=== PATIENT | male | born 1935 | race African-American/Black ===

== ENCOUNTER 2017-06-11 15:34 | Observation (INO) | payer MEDICARE ==
[2017-06-11 16:12] LABS: #Eosinphils 0.1 thou/uL (0.0-0.7); #Monocytes 0.7 thou/uL (0.11-0.59); #Neutrophils 4.4 thou/uL (1.40-6.50); %Basophils 0.3 % (0.0-1.0); %Eosinophils 1.8 % (0.0-10.0); %Lymphocytes 16.1 % (21.0-51.0); %Monocytes 11.8 % (0.0-10.0); Hemoglobin 10.7 g/dL (14.0-18.0); Mean Corpuscular HGB CONC 32.9 g/dL (32.0-36.0); Mean Corpuscular Hemoglobin 30.6 pg (27.0-31.0); Mean Platelet Volume 8.5 fL (7.4-10.4); Platelet Count 252 thou/uL (130-400); RBC Distribution Width 13.6 % (11.5-14.5); Red Blood Cell (RBC) Count 3.51 mill/uL (4.70-6.10); White Blood Cell (WBC) Count 6.3 thou/uL (4.8-10.8)
--- NOTE | 2017-06-11 16:32 | RAD ---
PORTABLE CHEST ONE VIEW: Date: 06-11-17 Time: 4:22 p.m. History: Cough, fever, chills. FINDINGS: Comparison is made with exam of 05-05-17. Heart size is normal. No confluent areas of consolidation, pneumothoraces or pleural effusions are se en. IMPRESSION: No radiographic evidence of acute cardiopulmonary process. POS: [facility]
[2017-06-11 16:37] LABS: ALT (SGPT) 11 U/L (8-55); AST (SGOT) 20 U/L (5-34); Albumin 3.6 g/dL (3.4-4.8); Alkaline Phosphatase 62 U/L (40-150); Anion Gap 11 mmol/L (10-20); BUN (Urea Nitrogen) 21 mg/dL (8.4-25.7); Bilirubin, Total 0.8 mg/dL (0.2-1.2); Calc. Creatinine Clearance 0 mL/min (70-130); Calcium 8.9 mg/dL (7.8-10.44); Carbon Dioxide 23 mmol/L (23-31); Chloride 103 mmol/L (98-107); Estimated GFR-MDRD 56; Globulin 4.1 g/dL (2.4-3.5); Glucose 103 mg/dL (83-110); Potassium 4.1 mmol/L (3.5-5.1); Protein, Total 7.7 g/dL (5.8-8.1); Sodium 133 mmol/L (136-145)
[2017-06-11 17:44] LABS: CKMB 1.4 ng/mL (0-6.6); Troponin I 0.012 ng/mL (< 0.028)
--- NOTE | 2017-06-11 18:37 | CT ---
NONCONTRAST CT HEAD: Date: 06-11-17 History: Altered mental status. Flu-like symptoms. Comparison: 01-06-17 FINDINGS: Again noted is confluent decreased attenuation of the periventricular white matter likely reflective severe chronic small vessel ischemic change. Low density areas again seen within the left basal gangl ia suggesting remote lacunar infarction. There is no evidence of an acute cortical infarction, hemorr pola, mass effect, or midline shift. Diffuse cerebral and cerebellar volume loss is present. The vent ricles are normal in size, shape, and position for the degree of sulcal atrophy. Mucosal thickening i s seen in the ethmoidal air cells bilaterally. Mastoid air cells are clear. There has been no other i nterval change. IMPRESSION: 1. No acute intracranial abnormalities demonstrated. There has been no interval change from the prior exam. 2. Chronic small vessel ischemic changes and cerebral volume loss not significantly changed from prev ious comparison study. 3. Mild sinus disease. POS: [facility]
[2017-06-11 19:10] LABS: Bilirubin Negative (Negative); Blood, Urine Negative (Negative); Clarity CLEAR (Clear); Glucose, Urine (Dipstick) Negative (Negative); Leukocyte Negative (Negative); Nitrite Negative (Negative); Protein, Urine (Dipstick) Negative (Neg-Trace); Specific Gravity, Urine 1.008 (1.002-1.036); Urobilinogen 0.2 mg/dL (0.2-1.0)
[2017-06-11 20:29] LABS: Troponin I 0.013 ng/mL (< 0.028)
[2017-06-11] MEDS ORDERED: Ondansetron ODT 4 MG TAB SL PRN (21:10)
[2017-06-11] MEDS ORDERED: Ondansetron HCl/PF 4 MG/2 ML Vial IVP PRN (21:10)
[2017-06-11] MEDS ORDERED: Acetaminophen 325 MG TAB PO PRN (21:10)
[2017-06-11 22:59] VITALS: BMI 22.8
[2017-06-11 23:09] LABS: Troponin I 0.027 ng/mL (< 0.028)
[2017-06-11] MEDS ORDERED: HYDROcodone/Acetaminophen 5/325 mg Tablet PO PRN (23:59)
[2017-06-11] MEDS ORDERED: Guaifenesin DM 100-10/5 ML UDCUP PO PRN (23:59)
[2017-06-12] MEDS ORDERED: Albuterol Sulfate 2.5 mg/3 ml Neb NEB PRN (00:02)
[2017-06-12] MEDS: Sodium Chloride 0.9% 1,000 ML IV SCH ×2 (00:36→12:21)
--- NOTE | 2017-06-12 04:00 | HP ---
DATE OF ADMISSION: 06/11/2017 CHIEF COMPLAINT: Shortness of breath. HISTORY OF PRESENT ILLNESS: This is an 81-year-old -A[place]ij[place] male with a past medical history of hypertension, has been in his usual state of health until few days ago, he started noticing persi stent cough and congestion with low grade fever, so he decided to come to the ER for further evaluati on as it did not get a flu shot this season. The patient presented to the ER, he was non-hypoxic, bu t he was pretty weak and tired and lethargic, so he received a flu shot as his influenza A and B was negative, but because of the lethargy and weakness, he was admitted for further evaluation. Patient was seen on the floor. He was alert and oriented. He started feeling much better following some hyd ration and nebulizer treatments in the ER. The patient looked pretty dehydrated at this time. He de nies having any chest pain, no nausea, no vomiting, no diarrhea, no constipation. He lives on his [facility] and has no other family member living close by. PAST MEDICAL HISTORY: Hypertension, history of T3, history of colon cancer. PAST SURGICAL HISTORY: 1. He had a prostate cancer treated with chemo and radiation. 2. Appendectomy. 3. Prostatectomy. 4. Left colon resection with reversal of colostomy and laparoscopy, ventral hernia repair. SOCIAL HISTORY: The patient drinks occasionally. No history of alcohol. No history of smoking. No history of illicit drug use. FAMILY HISTORY: Significant family history of coronary artery disease. No other cancers in the [facility]. HOME MEDICATIONS: The patient is on amlodipine 5 mg p.o. daily and takes potassium 20 mEq p.o. daily . ALLERGIES: PENICILLIN allergy. REVIEW OF SYSTEMS: All 12 systems are reviewed with the patient thoroughly and found to be negative at this time except those described in HPI. The following complete review of systems was negative, u nless otherwise mentioned in the HPI or below: Constitutional: Weight loss or gain, sense of well-being, ability to conduct usual activities, exerc ise tolerance. Skin/Breast: Rash, itching, changes in hair growth or loss, nail changes, breast lum ps, tenderness, swelling, nipple discharge. Eyes: Vision, double vision, tearing, blind spots, pain . ENT/Mouth: Headaches (location, time of onset, duration, precipitating factors), vertigo, lightheadedness, injury. Vision, double vision, tearing, blind spots, pain, nose b leeding, colds, obstruction, discharge, dental difficulties, gingival bleeding, dentures, neck stiffn ess, pain, tenderness, masses in thyroid or other areas. Cardiovascular: Precordial pain, substerna l distress, palpitations, syncope, dyspnea on exertion, orthopnea, nocturnal paroxysmal dyspnea, al a, cyanosis, hypertension, heart murmurs, varicosities, phlebitis, claudication. Respiratory: Pain, shortness of breath, wheezing, stridor, cough, hemoptysis, fever or night sweats. Gastrointestinal: Poor appetite, dysphagia, indigestion, abdominal pain, heartburn, eructation, nausea, vomiting, hem atemesis, jaundice, constipation, or diarrhea, abnormal stools (michael-colored, tarry, bloody, greasy, foul smelling), flatulence, hemorrhoids, recent changes in bowel habits. Genitourinary: Urgency, fr equency, dysuria, nocturia, hematuria, polyuria, oliguria, unusual (or change in) color of urine, sto hina, hesitancy, change in size of stream, dribbling, acute retention or incontinence, libido, potency . Musculoskeletal: Pain, swelling, redness or heat of muscles or joints, limitation, of motion, mus cular weakness, atrophy, cramps. Neurologic/Psychiatric: Convulsions, paralyses, tremor, incoordina tion, parasthesias, difficulties with memory of speech, sensory or motor disturbances, or muscular co ordination (ataxia, tremor), emotional problems, anxiety, depression, previous psychiatric care, unus ual perceptions, hallucinations. Allergy/Immunologic: Skin rash, anemia, bleeding tendency, polydip yunior, polyuria, intolerance to heat or cold. PHYSICAL EXAMINATION: VITAL SIGNS: Blood pressures are 152/85, heart rate is 74, respiratory rate is 18, saturation is 98% on room air. GENERAL: The patient is a moderately built and moderately nourished. He does not appear to be in ac [place] distress at this time. He is alert, oriented x3. HEENT: Atraumatic, normocephalic, PERRLA. Extraocular muscles were intact. Oral mucosa is pink and moist. CARDIOVASCULAR: S1, S2 normal. No murmurs, rubs or gallops. LUNGS: Bilateral air entry was equal. No wheezing, no crackles. ABDOMEN: Soft and nontender. No guarding or rebound tenderness. Bowel sounds normal. MUSCULOSKELETAL: No calf tenderness. No pedal edema. EXTREMITIES: No joint tenderness. No joint swelling. SKIN: No cyanosis or erythema, no rash, no pallor. NEUROLOGIC: Cranial examination II-XII intact. No focal deficits were noted. LABORATORY DATA: WBC 6.3, hemoglobin 10.7, hematocrit 32.6. His sodium is 133, potassium 4.1, chloride is 103, bicarbonate is 23, BUN is 21, creatinine 1.45. Tr oponins remain normal. ASSESSMENT: 1. Acute flu-like syndrome. 2. Moderate dehydration. 3. Acute kidney injury. 4. Acute hyponatremia. 5. Anemia of chronic disease. 6. Hypertension, well controlled. PLAN: 1. The plan is to continue to monitor this patient. Start the patient on IV hydration with normal s kassandra at 100 mL hour. We will closely monitor. We will start the patient on antihistamines and Flon ase twice a day. The patient has received flu shot during this admission and we will continue to mon itor. If the patient starts feeling better, we will do a PT and OT evaluation in the morning. If he is safely discharge home, we will plan to discharge home or if he needs any rehab placement, we will do a rehab screen in the morning. 2. Patient has mild hyponatremia and it would be corrected with sodium with normal saline. 3. The patient has mild anemia with hemoglobin of 10.7. We will start the patient on iron medicatio ns with ferrous sulfate 325 mg p.o. b.i.d. and we will look for any evidence of GI bleed. We will do a stool occult. 4. Patient has hypertension. We will continue the patient's home medications at this time and we wi ll closely monitor his blood pressures while in the hospital. 5. DVT prophylaxis. SCDs. Dictating physician, Mansoor Basilio, has spent 70 minutes with this patient.
[2017-06-12 06:07] LABS: Anion Gap 9 mmol/L (10-20); BUN (Urea Nitrogen) 18 mg/dL (8.4-25.7); Calc. Creatinine Clearance 46 mL/min (70-130); Calcium 8.8 mg/dL (7.8-10.44); Carbon Dioxide 24 mmol/L (23-31); Chloride 108 mmol/L (98-107); Estimated GFR-MDRD 73; Glucose 87 mg/dL (83-110); Potassium 3.9 mmol/L (3.5-5.1); Sodium 137 mmol/L (136-145)
[2017-06-12 06:35] LABS: Band 3 % (5-11); Hemoglobin 10.1 g/dL (14.0-18.0); Lymphocytes 12 % (21-51); MDiff Complete? YES; Mean Corpuscular HGB CONC 32.1 g/dL (32.0-36.0); Mean Corpuscular Volume 93.6 fl (80.0-94.0); Mean Platelet Volume 8.6 fL (7.4-10.4); Monocytes 6 % (0-10); Neutrophil 79 % (42-75); PLT Morphology Comment Appears Adequate; Platelet Count 226 thou/uL (130-400); RBC Distribution Width 13.6 % (11.5-14.5); RBC Morphology Normal; Red Blood Cell (RBC) Count 3.36 mill/uL (4.70-6.10); White Blood Cell (WBC) Count 4.1 thou/uL (4.8-10.8)
[2017-06-12] MEDS ORDERED: Ferrous Sulfate 325 MG TAB PO SCH (08:00)
[2017-06-12] MEDS ORDERED: Fluticasone Propionate Nasal Spray 16 gm Bottle NASAL SCH (09:00)
[2017-06-12] MEDS ORDERED: Famotidine/PF 20 mg/2ml Vial SLOW IVP SCH (09:00)
[2017-06-12] MEDS ORDERED: Enoxaparin Sodium 40 MG/0.4 ML SYRINGE SC SCH (09:00)
[2017-06-12] MEDS ORDERED: Docusate 100 MG CAP PO SCH (09:00)
[2017-06-12] MEDS ORDERED: Loratadine 10 MG TAB PO SCH (09:00)
[2017-06-12] MEDS ORDERED: Prevnar 13-Val Conj/PF 0.5 ML SYRINGE IM ONE (09:00)
[2017-06-12] MEDS ORDERED: FLU VACC TS2017-18 (>65YR) 0.5 ML SYRINGE IM ONE (09:00)
[2017-06-12] MEDS ORDERED: Amlodipine 5 MG TAB PO SCH (09:00)
[2017-06-12 12:09] VITALS: TEMP 98
[2017-06-12 15:06] VITALS: BP 139/76
--- NOTE | 2017-06-13 01:42 | DIS ---
DATE OF ADMISSION: 06/11/2017 DATE OF DISCHARGE: 06/12/2017 CONDITION AT THE TIME OF DISCHARGE: Stable and improved. DISCHARGE DIAGNOSES: 1. Acute flu-like symptoms. 2. Moderate dehydration. 3. Acute kidney injury, resolved. 4. Acute hyponatremia. 5. Anemia of chronic disease. 6. Hypertension. DISCHARGE MEDICATIONS: Remain the same as admission medication including as follows amlodipine 5 mg daily, potassium chloride 20 mEq daily. PRIMARY CARE PHYSICIAN: Jimmy Roland MD PROCEDURES DONE IN THE HOSPITAL: Include chest x-ray which was unremarkable. CT scan of the brain, which does not show any acute abnormalities. Labs pending at the time of disch arge, respiratory viral panel by PCR. The patient chose not to wait for the results. DISCHARGE DISPOSITION: Home with home health. Set up as per the case planner. HISTORY OF PRESENTING ILLNESS: Mr. Madden is an 81-year-old male with past medical history of prosta te cancer status post surgery, chemotherapy, radiation as well as left colon resection with reversal of colostomy and laparoscopy, who presented to the emergency room with complaints of shortness of jina ath. He is a rather poor historian and his symptoms were nonspecific. He mainly complained of feeli ng weak, tired, and lethargic. Upon admission, he was hemodynamically stable and his workup was unre markable. His flu swab and the rapid swab were negative. He had mild creatinine elevated to 1.45 an d was admitted to observation status. Please see admission history and physical for further details. HOSPITAL COURSE: The patient was resuscitated with IV fluids and his renal function improved. As pe r he did not have any lab abnormalities and his vital signs were stable, it was unclear what his pres enting symptoms were and why he was admitted. To me, he reported that he came to the emergency room because he felt cold when his daughter left the door open and let the cold air in. Family was in the room when I discussed this with them and at this time they would like to take him home as there is n o further need for him to stay in the inpatient setting. For completion sake, respiratory viral path ogen by the PCR was ordered, but the results are pending at this time. The patient and his family do not want to wait for the results as they have to waste picker their child from school, which is a long di stance for them. I requested them to see Dr. Jimmy Roland for the results tomorrow morning. They re quested home health, which is in the process of being set up with the help of the case planner. He w as evaluated by physical therapist, who actually have discharged him. He was also evaluated by occup ational therapist, which did recommend some home health. He was seen and examined prior to discharge. PHYSICAL EXAMINATION: VITAL SIGNS: Temperature 98, heart rate 82, respirations 20, saturating 97% on room air, blood press ure 156/75. No acute distress. Awake, alert, oriented x3. CHEST: Clear to auscultation without any wheezing, rales, or rhonchi. Rate rhythm is regular withou t any murmur, rubs, or gallops. ABDOMEN: Soft, nontender, nondistended. NEUROLOGIC: Nonfocal. LAB EXAMINATION: CBC shows WBCs 4.1, hemoglobin 10.1, which was 10.7 on presentation, platelet count of 226. Serum chemistries unremarkable, troponin trended x3 and within normal limits. Urinalysis u nremarkable. At this time, he is discharged as he is back to his baseline without any specific signs and symptoms of illness. He will follow with primary care physician shortly.
[2017-06-13 10:20] LABS: Total PSA 0.4 ng/mL (0.0-4.0)
== END 2017-06-12 16:56 | disposition home or self-care (01) ==
LOC: ERS 15:34 → 2SE 19:20 → INTOOBSV 19:20
PROVIDERS: ADMIT Internal Medicine; ATTEND Internal Medicine
DX: R06.02 Shortness of breath (principal); R05 Cough; I10 Essential (primary) hypertension; E86.0 Dehydration; E87.1 Hypo-osmolality and hyponatremia; N17.9 Acute kidney failure, unspecified; D63.8 Anemia in other chronic diseases classified elsewhere; Z85.038 Personal history of other malignant neoplasm of large intestine; Z85.46 Personal history of malignant neoplasm of prostate; Z92.21 Personal history of antineoplastic chemotherapy; Z92.3 Personal history of irradiation; Z79.899 Other long term (current) drug therapy; Z90.49 Acquired absence of other specified parts of digestive tract; Z90.79 Acquired absence of other genital organ(s); Z98.890 Other specified postprocedural states; Z23 Encounter for immunization
CPT/HCPCS: 70450; 71045; 80048; 80053; 81003; 82553; 84153; 84154; 84484 ×2; 85025 ×2; 87804 ×2; 90670; 93005; 96361; 96372; 96374; 97116; 97139 ×2; 97530; 99285; G0008; G0009; G0378; G8978; G8979; G8980; G8987; G8988; Q2036; 36415; 87633; 87798; 90471; 90682; J1650; S0028

== ENCOUNTER 2019-04-09 16:45 | Inpatient (IN) | payer MEDICARE ==
[2019-04-09 21:10] VITALS: BMI 21.4
[2019-04-09] MEDS ORDERED: hydrALAZINE 20 MG/ML VIAL SLOW IVP PRN (21:13)
[2019-04-09] MEDS: Sodium Chloride 0.9% 1,000 ML IV SCH (21:48)
[2019-04-10] MEDS ORDERED: Morphine 2 MG/ML SYRINGE SLOW IVP SCH (05:15)
[2019-04-10 05:17] LABS: #Lymphocytes 1.6 thou/uL (1.20-3.40); #Monocytes 0.9 thou/uL (0.11-0.59); #Neutrophils 7.2 thou/uL (1.40-6.50); %Basophils 0.2 % (0.0-1.0); %Eosinophils 0.5 % (0.0-10.0); %Lymphocytes 16.2 % (21.0-51.0); %Monocytes 9.5 % (0.0-10.0); %Neutrophils 73.6 % (42.0-75.0); Hemoglobin 8.3 g/dL (14.0-18.0); Mean Corpuscular HGB CONC 33.3 g/dL (32.0-36.0); Mean Corpuscular Hemoglobin 30.5 pg (27.0-31.0); Mean Corpuscular Volume 91.5 fL (78.0-98.0); Mean Platelet Volume 8.4 fL (7.4-10.4); Platelet Count 237 thou/uL (130-400); RBC Distribution Width 13.6 % (11.5-14.5); Red Blood Cell (RBC) Count 2.73 mill/uL (4.70-6.10); White Blood Cell (WBC) Count 9.8 thou/uL (4.8-10.8)
[2019-04-10 05:32] LABS: Anion Gap 13 mmol/L (10-20); BUN (Urea Nitrogen) 18 mg/dL (8.4-25.7); Calc. Creatinine Clearance 46 mL/min (70-130); Calcium 9.1 mg/dL (7.8-10.44); Carbon Dioxide 21 mmol/L (23-31); Chloride 109 mmol/L (98-107); Estimated GFR-MDRD 80; Glucose 82 mg/dL (83-110); Potassium 3.5 mmol/L (3.5-5.1); Sodium 139 mmol/L (136-145)
[2019-04-10] MEDS: Acetaminophen 325 MG TAB PO PRN ×2 (10:01→16:26)
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
[2019-04-10] MEDS: Sodium Chloride 0.9% 1,000 ML IV SCH (11:18)
--- NOTE | 2019-04-10 12:16 | PDOC.HOSPP ---
- Subjective Encounter Date: 04/10/19 Encounter Time: 11:30 Subjective: no sob or pain is moving his extremities not fully oriented - Objective Vital Signs & Weight: Vital Signs (12 hours) Temp Pulse Resp BP BP Pulse Ox 04/10/19 12:00 97.7 F 82 20 91/58 L 99 04/10/19 08:00 99.0 F 90 20 129/61 99 04/10/19 04:22 98.1 F 104 H 20 136/68 98 Weight Weight 141 lb 1.533 oz I&O: 04/09/19 04/10/19 04/11/19 06:59 06:59 06:59 Intake Total 909 Output Total 210 Balance 699 Result Diagrams: 04/10/19 04:59 04/10/19 04:59 Hospitalist ROS - Medication Medications: Active Medications Generic Name Dose Route Start Last Admin Trade Name Freq PRN Reason Stop Dose Admin Acetaminophen 650 mg 04/09/19 21:27 04/10/19 10:01 Tylenol PO 650 mg Q6H PRN Administration Mild Pain (1-3) Sodium Chloride 1,000 mls @ 75 mls/hr 04/09/19 21:15 04/10/19 11:18 Normal Saline 0.9% IV 1,000 mls .[id number] AYSHA Administration Sodium Chloride 10 ml 04/10/19 09:00 04/10/19 10:03 Flush - Normal Saline IVF 10 ml Q12HR AYSHA Administration - Exam General Appearance: awake alert Eye: anicteric sclera ENT: no oropharyngeal lesions, moist mucosa Neck: supple, no JVD Heart: RRR, no murmur Respiratory: no wheezes, no rales Gastrointestinal: soft, non-tender, non-distended, normal bowel sounds Extremities - other findings: right knee effusion+ Neurological: cranial nerve grossly intact, no focal deficits Hosp A/P (1) Effusion, right knee Code(s): M25.461 - EFFUSION, RIGHT KNEE Status: Acute (2) Chronic anemia Code(s): D64.9 - ANEMIA, UNSPECIFIED Status: Chronic (3) H/O malignant neoplasm of colon Code(s): Z85.038 - PERSONAL HISTORY OF MALIGNANT NEOPLASM OF LARGE INTESTINE Status: Chronic (4) FRANK (acute kidney injury) Code(s): N17.9 - ACUTE KIDNEY FAILURE, UNSPECIFIED Status: Resolved (5) UTI (urinary tract infection) Status: Acute Qualifiers: Urinary tract infection type: acute cystitis Hematuria presence: without hematuria Qualified Code(s): N30.00 - Acute cystitis without hematuria (6) H/O prostate cancer Code(s): Z85.46 - PERSONAL HISTORY OF MALIGNANT NEOPLASM OF PROSTATE Status: Chronic (7) HTN (hypertension) Code(s): I10 - ESSENTIAL (PRIMARY) HYPERTENSION Status: Chronic Qualifiers: Hypertension type: essential hypertension Qualified Code(s): I10 - Essential (primary) hypertension - Plan is on ceftriaxone and vanc, await full culture of knee aspiration ortho has evaluated him, no procedures planned, effusion sec to OA morphine prn to mobilize per ortho adv CM for help with dc planning
[2019-04-10] MEDS ORDERED: cefTRIAXone\\ROCEPHIN 1 GM in Sodium Chloride 0.9% 100 ML IVPB SCH (13:00)
[2019-04-10] MEDS ORDERED: Vancomycin HCl 1 GM in Premix Bag 1 BAG IVPB SCH (14:00)
[2019-04-11] MEDS: Sodium Chloride 0.9% 1,000 ML IV SCH (00:13)
[2019-04-11] MEDS: Acetaminophen 325 MG TAB PO PRN ×3 (00:13→13:30)
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
[2019-04-11 08:09] LABS: #Eosinphils 0.1 thou/uL (0.0-0.7); #Lymphocytes 1.4 thou/uL (1.20-3.40); #Monocytes 0.5 thou/uL (0.11-0.59); #Neutrophils 4.5 thou/uL (1.40-6.50); %Basophils 0.3 % (0.0-1.0); %Eosinophils 0.9 % (0.0-10.0); %Monocytes 7.4 % (0.0-10.0); %Neutrophils 70.4 % (42.0-75.0); Hemoglobin 7.5 g/dL (14.0-18.0); Mean Corpuscular HGB CONC 33.2 g/dL (32.0-36.0); Mean Corpuscular Hemoglobin 30.6 pg (27.0-31.0); Mean Corpuscular Volume 92.1 fL (78.0-98.0); Mean Platelet Volume 8.2 fL (7.4-10.4); Platelet Count 228 thou/uL (130-400); RBC Distribution Width 13.5 % (11.5-14.5); Red Blood Cell (RBC) Count 2.46 mill/uL (4.70-6.10); White Blood Cell (WBC) Count 6.4 thou/uL (4.8-10.8)
[2019-04-11 08:37] LABS: Anion Gap 7 mmol/L (10-20); BUN (Urea Nitrogen) 16 mg/dL (8.4-25.7); Calc. Creatinine Clearance 43 mL/min (70-130); Calcium 8.3 mg/dL (7.8-10.44); Carbon Dioxide 23 mmol/L (23-31); Chloride 107 mmol/L (98-107); Estimated GFR-MDRD 74; Glucose 98 mg/dL (83-110); Potassium 3.4 mmol/L (3.5-5.1); Sodium 134 mmol/L (136-145)
[2019-04-11] MEDS: Colchicine 0.6 MG TAB PO SCH ×2 (11:33→20:14)
--- NOTE | 2019-04-11 13:09 | PDOC.HOSPP ---
- Subjective Encounter Date: 04/11/19 Encounter Time: 09:00 Subjective: knee pain is better, not in distress has not amb (few steps) with PT - Objective Vital Signs & Weight: Vital Signs (12 hours) Temp Pulse Resp BP BP Pulse Ox 04/11/19 07:46 98.6 F 82 20 118/45 L 99 04/11/19 04:30 98.3 F 93 16 125/69 96 Weight Weight 141 lb 1.533 oz I&O: 04/10/19 04/11/19 04/12/19 06:59 06:59 06:59 Intake Total 909 1065 Output Total 210 285 725 Balance 699 780 -725 Result Diagrams: 04/11/19 07:58 04/11/19 07:58 Hospitalist ROS - Medication Medications: Active Medications Generic Name Dose Route Start Last Admin Trade Name Freq PRN Reason Stop Dose Admin Acetaminophen 650 mg 04/09/19 21:27 04/11/19 06:12 Tylenol PO 650 mg Q6H PRN Administration Mild Pain (1-3) Colchicine 0.6 mg 04/11/19 09:00 04/11/19 11:33 Colchicine PO 0.6 mg BID AYSHA Administration Sodium Chloride 10 ml 04/10/19 09:00 04/11/19 09:00 Flush - Normal Saline IVF Not Given Q12HR AYSHA - Exam General Appearance: awake alert Eye: anicteric sclera ENT: no oropharyngeal lesions, moist mucosa Neck: supple, no JVD Heart: no murmur, no gallops Respiratory: no wheezes, no rales Gastrointestinal: soft, non-tender, non-distended, normal bowel sounds Extremities: no cyanosis Extremities - other findings: right knee effusion+, nontender Neurological: cranial nerve grossly intact, no focal deficits Psychiatric: A&O x 3 Hosp A/P (1) Effusion, right knee Code(s): M25.461 - EFFUSION, RIGHT KNEE Status: Acute (2) Chronic anemia Code(s): D64.9 - ANEMIA, UNSPECIFIED Status: Chronic (3) H/O malignant neoplasm of colon Code(s): Z85.038 - PERSONAL HISTORY OF MALIGNANT NEOPLASM OF LARGE INTESTINE Status: Chronic (4) FRANK (acute kidney injury) Code(s): N17.9 - ACUTE KIDNEY FAILURE, UNSPECIFIED Status: Resolved (5) UTI (urinary tract infection) Status: Acute Qualifiers: Urinary tract infection type: acute cystitis Hematuria presence: without hematuria Qualified Code(s): N30.00 - Acute cystitis without hematuria (6) H/O prostate cancer Code(s): Z85.46 - PERSONAL HISTORY OF MALIGNANT NEOPLASM OF PROSTATE Status: Chronic (7) HTN (hypertension) Code(s): I10 - ESSENTIAL (PRIMARY) HYPERTENSION Status: Chronic Qualifiers: Hypertension type: essential hypertension Qualified Code(s): I10 - Essential (primary) hypertension - Plan colchicine for pseudogout, no steroid inj per ortho, is off antibiotics per ortho. ortho has evaluated him, no procedures planned, effusion sec to OA and pseudogout morphine prn to mobilize per ortho adv CM for help with dc planning, likely will need swing/rehab
[2019-04-11 13:17] LABS: Vancomycin, Trough 9.7 ug/mL
[2019-04-11 13:18] LABS: Iron Binding Capacity, Total 129 mcg/dL (261-462)
[2019-04-11 13:19] LABS: Iron 40 ug/dL (65-175)
[2019-04-11 13:44] LABS: Ferritin 1461.59 ng/mL (22-322)
--- NOTE | 2019-04-11 13:53 | PRG ---
DATE OF SERVICE: 04/11/2019 SUBJECTIVE: Andriy's crystal analysis demonstrated pseudogout. He has improved clinically. I talked to Dr. Singleton this morning. He is going to start him on some colchicine and subjectively the patient's pain is improved since his arthrocentesis. OBJECTIVE: VITAL SIGNS: He is afebrile and he is tolerating regular diet. EXTREMITIES: Visual inspection of the right knee demonstrates his effusion to be about the same. His range of motion is still a little stiff, but overall the exam is non-provocative with palpation. 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 PLAN: No orthopedic recommendations at this point, treat medically with colchicine as discussed. No surgical intervention is warranted. Job ID: [id number]
[2019-04-11] MEDS: Ferrous Sulfate 325 MG TAB PO SCH (18:08)
[2019-04-11] MEDS ORDERED: PARoxetine 20 MG TAB ONE (18:49)
--- NOTE | 2019-04-11 18:54 | CON ---
DATE OF CONSULTATION: 04/11/2019 REQUESTING PHYSICIAN: Dr. Singleton. REASON FOR CONSULTATION: Anemia. HISTORY OF PRESENT ILLNESS: Andriy Madden is an 83-year-old man. He apparently has some degree of dementia and history is difficult to obtain from him. He has a past medical history of hypertension and chronic anemia. He also has a history of colon cancer and underwent left hemicolectomy back in 2006. This was discovered by Dr. Mayorga. Followup colonoscopy by Dr. Mayorga in 2007 was unremarkable following colostomy takedown. The patient has subsequently had hernia repairs and a few hospitalizations for transient small-bowel obstructions, though none recently. He also evidently has a history of prostate cancer, status post prostatectomy but chemo and radiation as well, as well as an appendectomy. It does not appear he has had any endoscopic investigations since 2007. The patient was admitted to the hospital 2 days ago after presenting with severe swelling and warm effusion in the right knee as well as the ankle. He had joint aspiration and there was initial suspicion for septic arthritis, but this has subsequently been characterized as pseudogout and he has been started on colchicine. Notably, his admission hemoglobin was 9.6, and over the past couple of days, this has drifted down to 7.5. This is a normocytic anemia with MCV 92.1. He has not received any blood transfusion. Notably, his BUN is not elevated. Iron studies were mixed with elevated ferritin, likely representing acute phase reactant. Vitamin B12 and folate levels are satisfactory. The patient denies any melena or hematochezia or any overt bleeding from anywhere. There is no abdominal pain or dysphagia. No nausea or vomiting. He denies any weight loss. He has been tolerating his regular diet today. REVIEW OF SYSTEMS: Full review of systems including constitutional, head, eyes, ears, nose, throat, GI, , cardiovascular, respiratory, musculoskeletal, neurologic systems is negative except as noted in the HPI. PAST MEDICAL HISTORY: Hypertension, anemia, colon cancer status post left hemicolectomy in 2006 with subsequent colostomy takedown. Last colonoscopy in 2007, evidently unremarkable. Prostate cancer status post prostatectomy, chemotherapy and radiation, appendectomy, small-bowel obstruction, pseudogout. ALLERGIES: PENICILLIN. OUTPATIENT MEDICATION: Amlodipine 5 mg daily. SOCIAL HISTORY: No smoking, alcohol, or drug use. FAMILY HISTORY: The patient is not able to recount any family history for me. PHYSICAL EXAMINATION: VITAL SIGNS: Temperature 98.6, pulse 82, blood pressure 118/45, 99% oxygen saturation on room air. GENERAL: Elderly frail 83-year-old man, sitting up in bed comfortably, eating dinner, in no acute distress. SKIN: No jaundice, no rashes were palpable. EYES: No scleral icterus. Extraocular movements intact. ENT: Mucous membranes moist. No oral lesions. LYMPH: No submandibular or supraclavicular lymphadenopathy. THYROID: Nontender to palpation. HEART: Regular rate and rhythm. LUNGS: Clear to auscultation bilaterally. ABDOMEN: Bowel sounds present. Soft, nontender to palpation throughout. EXTREMITIES: No peripheral edema. He has a right knee effusion. NEUROLOGIC: Cranial nerves 2 through 12 intact bilaterally. VESSELS: Radial pulses 2+ bilaterally. LABORATORY STUDIES: Hemoglobin 7.5, MCV 92, WBC 6.4, platelets 228. Sodium 134, potassium 3.4, BUN 16, creatinine 1.14, glucose 98. Ferritin is , iron 40, TIBC 129, so iron studies are basically mixed. Vitamin B12 is 1045, folic acid 7.1. FOBT is pending. ASSESSMENT AND PLAN: 1. Anemia, normocytic, with mixed iron studies. 2. Remote history of colorectal cancer, status post left hemicolectomy and subsequent colostomy takedown in 2006, with last colonoscopy evidently back in 2007. The patient has significant anemia, which is basically incidental to his presentation with pseudogout. He denies any gastrointestinal symptoms and there has not been any report of any overt bleeding. Iron studies were mixed, but occult GI bleeding lesion is certainly on the differential. Particularly with his prior history of colon cancer, it would be reasonable to consider endoscopic investigation with EGD and colonoscopy. However, I am having significant difficulty getting the patient to understand the implications of the anemia and considerations for further workup. At one point, he says he would want to undergo the procedure, and then at another point, he says we can do whatever we want, so obviously this makes decision-making difficult. At this point, we will go ahead and put him on a clear liquid diet tomorrow, and we can reassess the situation and talk about it more tomorrow. If he decides to proceed with EGD/colonoscopy, we could administer bowel preparation tomorrow evening, and plan for the procedure the following day. Thank you for the consultation. Please call anytime with questions or concerns. Job ID: [id number]
[2019-04-12 08:56] LABS: Anion Gap 9 mmol/L (10-20); BUN (Urea Nitrogen) 13 mg/dL (8.4-25.7); Calc. Creatinine Clearance 44 mL/min (70-130); Calcium 8.7 mg/dL (7.8-10.44); Carbon Dioxide 24 mmol/L (23-31); Chloride 105 mmol/L (98-107); Estimated GFR-MDRD 76; Glucose 125 mg/dL (83-110); Potassium 3.3 mmol/L (3.5-5.1); Sodium 135 mmol/L (136-145)
[2019-04-12 08:59] LABS: #Eosinphils 0.1 thou/uL (0.0-0.7); #Lymphocytes 1.5 thou/uL (1.20-3.40); #Monocytes 0.4 thou/uL (0.11-0.59); #Neutrophils 4.3 thou/uL (1.40-6.50); %Basophils 0.5 % (0.0-1.0); %Lymphocytes 23.6 % (21.0-51.0); %Neutrophils 68.9 % (42.0-75.0); Hemoglobin 8.7 g/dL (14.0-18.0); Mean Corpuscular HGB CONC 32.4 g/dL (32.0-36.0); Mean Corpuscular Volume 92.4 fL (78.0-98.0); Mean Platelet Volume 8.2 fL (7.4-10.4); Platelet Count 310 thou/uL (130-400); RBC Distribution Width 13.9 % (11.5-14.5); Red Blood Cell (RBC) Count 2.91 mill/uL (4.70-6.10); White Blood Cell (WBC) Count 6.2 thou/uL (4.8-10.8)
[2019-04-12] MEDS: Cyanocobalamin (Vitamin B-12) 1,000 MCG TAB PO SCH (09:27)
[2019-04-12] MEDS: Folic Acid 1 MG TAB PO SCH (09:27)
[2019-04-12] MEDS: Colchicine 0.6 MG TAB PO SCH ×2 (09:27→21:28)
[2019-04-12] MEDS: Ferrous Sulfate 325 MG TAB PO SCH ×2 (09:27→16:45)
[2019-04-12] MEDS: Ascorbic Acid 500 mg Chewable Tablet PO SCH (09:28)
[2019-04-12] MEDS ORDERED: Potassium Chloride 20 MEQ TAB PO SCH (09:45)
--- NOTE | 2019-04-12 10:01 | PDOC.HOSPP ---
- Subjective Encounter Date: 04/12/19 Encounter Time: 09:45 Subjective: 83 y/o male with DM, HTN, colon cancer s/p L hemicolectomy, Dementia, CKD, chronic anemia, prostate cancer s/p treatment admitted with right knee effusion concerning for septic knee. joint aspirate showed pyuria but further evaluation showed crystals consistent with pseudogout. Aspirate cultures so far no growth. Feeling better. Found to have acute on chronic anemia which is being evaluated. - Objective Vital Signs & Weight: Vital Signs (12 hours) Temp Pulse Resp BP BP Pulse Ox 04/12/19 08:00 99.5 F 99 18 134/71 97 04/12/19 04:17 127/70 04/12/19 00:20 146/68 H Weight Weight 141 lb 1.533 oz I&O: 04/11/19 04/12/19 04/13/19 06:59 06:59 06:59 Intake Total 1065 Output Total 285 725 Balance 780 -725 Result Diagrams: 04/12/19 08:26 04/12/19 08:26 Hospitalist ROS - Medication Medications: Active Medications Generic Name Dose Route Start Last Admin Trade Name Freq PRN Reason Stop Dose Admin Acetaminophen 650 mg 04/09/19 21:27 04/11/19 13:30 Tylenol PO 650 mg Q6H PRN Administration Mild Pain (1-3) Ascorbic Acid 500 mg 04/12/19 09:00 04/12/19 09:28 Vitamin C PO 500 mg DAILY AYSHA Administration Colchicine 0.6 mg 04/11/19 09:00 04/12/19 09:27 Colchicine PO 0.6 mg BID AYSHA Administration Cyanocobalamin 1,000 mcg 04/12/19 09:00 04/12/19 09:27 Vitamin B-12 PO 1,000 mcg DAILY AYSHA Administration Ferrous Sulfate 325 mg 04/11/19 17:00 04/12/19 09:27 Feosol PO 325 mg BID-WM AYSHA Administration Folic Acid 1 mg 04/12/19 09:00 04/12/19 09:27 Folvite PO 1 mg DAILY AYSHA Administration Sodium Chloride 10 ml 04/10/19 09:00 04/12/19 09:28 Flush - Normal Saline IVF 10 ml Q12HR AYSHA Administration - Exam General Appearance: awake alert Eye: anicteric sclera ENT: normocephalic atraumatic Neck: supple, no JVD Heart: RRR Respiratory: no wheezes, no rales, no ronchi, normal chest expansion Gastrointestinal: soft, non-tender, non-distended, normal bowel sounds Extremities: no edema Extremities - other findings: Mild R knee effusion with minimal pain/ tenderness. R ankle resolving burn Neurological: cranial nerve grossly intact, no focal deficits Neurological - other findings: oriented x 32 with memory lapses Musculoskeletal: generalized weakness, diffuse muscle atrophy Hosp A/P (1) Pseudogout of right knee Code(s): M11.261 - OTHER CHONDROCALCINOSIS, RIGHT KNEE Status: Acute (2) Physical deconditioning Code(s): R53.81 - OTHER MALAISE Status: Acute (3) Effusion, right knee Code(s): M25.461 - EFFUSION, RIGHT KNEE Status: Acute (4) Chronic anemia Code(s): D64.9 - ANEMIA, UNSPECIFIED Status: Chronic (5) H/O colon cancer, stage I Code(s): Z85.038 - PERSONAL HISTORY OF MALIGNANT NEOPLASM OF LARGE INTESTINE Status: Chronic (6) H/O prostate cancer Code(s): Z85.46 - PERSONAL HISTORY OF MALIGNANT NEOPLASM OF PROSTATE Status: Chronic (7) HTN (hypertension) Code(s): I10 - ESSENTIAL (PRIMARY) HYPERTENSION Status: Chronic Qualifiers: Hypertension type: essential hypertension Qualified Code(s): I10 - Essential (primary) hypertension (8) Hypokalemia Code(s): E87.6 - HYPOKALEMIA Status: Acute (9) FRANK (acute kidney injury) Code(s): N17.9 - ACUTE KIDNEY FAILURE, UNSPECIFIED Status: Resolved (10) Trichomoniasis of bladder Code(s): A59.03 - TRICHOMONAL CYSTITIS AND URETHRITIS Status: Acute (11) UTI (urinary tract infection) Status: Acute Qualifiers: Urinary tract infection type: acute cystitis Hematuria presence: without hematuria Qualified Code(s): N30.00 - Acute cystitis without hematuria (12) Positive blood culture Code(s): R78.81 - BACTEREMIA Status: Acute - Plan No antibiotic for now in view of positive blood culture 1/2 bottles. We will await microbe ID and susceptibility as this most likely will be contaminant. Jewel patient was on broad spectrum antibiotics since admission till yesterday 04/11/2019 and there is no SIRS features. Continure colchicine. Replete serum potassium. Await endoscopic evaluation by GI. PT/OT eval and treat. Monitor H/H
--- NOTE | 2019-04-12 11:56 | PRG ---
DATE OF SERVICE: 04/12/2019 SUBJECTIVE: Mr. Madden says he feels okay today. His knee feels a little bit better. He does not remember meeting me yesterday nor a conversation about his anemia and possible endoscopy. He again denies any abdominal pain. There has been no report of any blood in the stool. His hemoglobin is back up to 8.7 without any transfusion and it makes me wonder if the lab from yesterday was spurious. OBJECTIVE: VITAL SIGNS: Temperature 99.5, pulse 99, blood pressure 134/71, 97% oxygen saturation on room air. GENERAL: No acute distress. Pleasantly confused. HEART: Regular rate and rhythm. LUNGS: Clear to auscultation bilaterally. ABDOMEN: Soft and nontender to palpation. EXTREMITIES: No peripheral edema. LABORATORY STUDIES: Hemoglobin 8.7, WBC 6.2, platelets 310. Sodium 135, potassium 3.3, BUN 13, creatinine 1.11, glucose 125. ASSESSMENT AND PLAN: 1. Anemia, with mixed iron studies, stable. 2. Personal history of colon cancer, status post left hemicolectomy over 10 years ago. I discussed the situation with Dr. Machuca. The patient really is not able to consent on his own for any procedure due to his mental status. I do think EGD and colonoscopy would be warranted for further workup of the anemia, at least for prognostic purposes, but on the other hand, we would need to get consent from his designated power of prosecuting attorney. I have tried both phone numbers in our system for power of prosecuting attorney and also 1st alternate, but can't get a hold of anyone. So, we will continue to hold off on plans for any endoscopy. I remain available to discuss the situation at any time once we have found someone who was able to make decisions for the patient. Job ID: [id number]
[2019-04-13 07:32] LABS: Hemoglobin 8.9 g/dL (14.0-18.0); Mean Corpuscular Hemoglobin 30.6 pg (27.0-31.0); Mean Corpuscular Volume 92.6 fL (78.0-98.0); Mean Platelet Volume 8.2 fL (7.4-10.4); Platelet Count 283 thou/uL (130-400); RBC Distribution Width 13.6 % (11.5-14.5); Red Blood Cell (RBC) Count 2.92 mill/uL (4.70-6.10); White Blood Cell (WBC) Count 6.2 thou/uL (4.8-10.8)
[2019-04-13 07:54] LABS: Anion Gap 9 mmol/L (10-20); BUN (Urea Nitrogen) 12 mg/dL (8.4-25.7); Calc. Creatinine Clearance 47 mL/min (70-130); Calcium 8.9 mg/dL (7.8-10.44); Carbon Dioxide 24 mmol/L (23-31); Chloride 107 mmol/L (98-107); Estimated GFR-MDRD 81; Glucose 95 mg/dL (83-110); Potassium 4.2 mmol/L (3.5-5.1); Sodium 136 mmol/L (136-145)
[2019-04-13] MEDS: Folic Acid 1 MG TAB PO SCH (08:17)
[2019-04-13] MEDS: Cyanocobalamin (Vitamin B-12) 1,000 MCG TAB PO SCH (08:17)
[2019-04-13] MEDS: Ferrous Sulfate 325 MG TAB PO SCH ×2 (08:17→16:37)
[2019-04-13] MEDS: Ascorbic Acid 500 mg Chewable Tablet PO SCH (08:18)
[2019-04-13] MEDS: Colchicine 0.6 MG TAB PO SCH (08:18)
--- NOTE | 2019-04-13 14:19 | PDOC.HOSPP ---
- Subjective Encounter Date: 04/13/19 Encounter Time: 10:18 Subjective: 83 y/o male with DM, HTN, colon cancer s/p L hemicolectomy, Dementia, CKD, chronic anemia, prostate cancer s/p treatment admitted with right knee effusion concerning for septic knee. joint aspirate showed pyuria but further evaluation showed crystals consistent with pseudogout. Aspirate cultures so far no growth. Feeling better with no complaint. Found to have acute on chronic anemia which is to be evaluated by endoscopy but no relative to sign consent.. - Objective Vital Signs & Weight: Vital Signs (12 hours) Temp Pulse Resp BP Pulse Ox 04/13/19 08:00 98 04/13/19 07:50 97.9 F 78 18 138/70 100 04/13/19 04:45 98.4 F 83 12 147/71 H 98 Weight Weight 141 lb 1.533 oz I&O: 04/12/19 04/13/19 04/14/19 06:59 06:59 06:59 Intake Total 1600 Output Total 725 300 Balance -725 1300 Result Diagrams: 04/13/19 07:25 04/13/19 07:25 Hospitalist ROS - Medication Medications: Active Medications Generic Name Dose Route Start Last Admin Trade Name Freq PRN Reason Stop Dose Admin Acetaminophen 650 mg 04/09/19 21:27 04/11/19 13:30 Tylenol PO 650 mg Q6H PRN Administration Mild Pain (1-3) Ascorbic Acid 500 mg 04/12/19 09:00 04/13/19 08:18 Vitamin C PO 500 mg DAILY AYSHA Administration Cyanocobalamin 1,000 mcg 04/12/19 09:00 04/13/19 08:17 Vitamin B-12 PO 1,000 mcg DAILY AYSHA Administration Ferrous Sulfate 325 mg 04/11/19 17:00 04/13/19 08:17 Feosol PO 325 mg BID-WM AYSHA Administration Folic Acid 1 mg 04/12/19 09:00 04/13/19 08:17 Folvite PO 1 mg DAILY AYSHA Administration Sodium Chloride 10 ml 04/10/19 09:00 04/13/19 08:19 Flush - Normal Saline IVF 10 ml Q12HR AYSHA Administration - Exam General Appearance: awake alert Eye: anicteric sclera ENT: normocephalic atraumatic Neck: symmetric, no JVD Heart: RRR Respiratory: no wheezes, no rales, no ronchi, normal chest expansion, no tachypnea Gastrointestinal: soft, non-tender, non-distended, normal bowel sounds Extremities: no cyanosis, no edema Neurological: no new deficit Neurological - other findings: conscious and alert, oriented x 3. memeory lapses noted Musculoskeletal: generalized weakness Hosp A/P (1) Pseudogout of right knee Code(s): M11.261 - OTHER CHONDROCALCINOSIS, RIGHT KNEE Status: Acute (2) Physical deconditioning Code(s): R53.81 - OTHER MALAISE Status: Acute (3) Effusion, right knee Code(s): M25.461 - EFFUSION, RIGHT KNEE Status: Acute (4) Chronic anemia Code(s): D64.9 - ANEMIA, UNSPECIFIED Status: Chronic (5) H/O colon cancer, stage I Code(s): Z85.038 - PERSONAL HISTORY OF MALIGNANT NEOPLASM OF LARGE INTESTINE Status: Chronic (6) H/O prostate cancer Code(s): Z85.46 - PERSONAL HISTORY OF MALIGNANT NEOPLASM OF PROSTATE Status: Chronic (7) HTN (hypertension) Code(s): I10 - ESSENTIAL (PRIMARY) HYPERTENSION Status: Chronic Qualifiers: Hypertension type: essential hypertension Qualified Code(s): I10 - Essential (primary) hypertension (8) Hypokalemia Code(s): E87.6 - HYPOKALEMIA Status: Acute (9) FRANK (acute kidney injury) Code(s): N17.9 - ACUTE KIDNEY FAILURE, UNSPECIFIED Status: Resolved (10) Trichomoniasis of bladder Code(s): A59.03 - TRICHOMONAL CYSTITIS AND URETHRITIS Status: Acute (11) UTI (urinary tract infection) Status: Acute Qualifiers: Urinary tract infection type: acute cystitis Hematuria presence: without hematuria Qualified Code(s): N30.00 - Acute cystitis without hematuria (12) Positive blood culture Code(s): R78.81 - BACTEREMIA Status: Ruled-out - Plan Continue colchicine. No antibiotic as positive blood culture 1 of 2 bottles growing coag staph is considered contaminat. No relative as yet. Consult palliative care. Awaiting consent for endoscopic evaluation by GI. PT/OT eval and treat. Monitor H/H
[2019-04-13] MEDS: Acetaminophen 325 MG TAB PO PRN (16:38)
--- NOTE | 2019-04-13 16:55 | PRG ---
DATE OF SERVICE: 04/13/2019 SUBJECTIVE: Mr. Madden is feeling well. He is not really having any knee pain. He has gotten up and around, walking around the room. There is no abdominal pain, nausea, or vomiting. No report of any overt bleeding. He is tolerating his diet well. Despite multiple attempts yesterday evening and today, I have been unable to get in touch with any of his family members including his medical power of ip attorney. OBJECTIVE: VITAL SIGNS: Temperature 97.9, pulse 78, blood pressure 138/70, and 98% oxygen saturation on room air. GENERAL: No acute distress. HEART: Regular rate and rhythm. LUNGS: Clear to auscultation bilaterally. ABDOMEN: Soft, nontender to palpation. EXTREMITIES: No peripheral edema. LABORATORY STUDIES: Hemoglobin is stable at 8.9, WBC 6.2, platelets 283. Sodium 136, potassium 4.2, BUN 12, creatinine 1.05. ASSESSMENT AND PLAN: 1. Anemia, chronic with mixed iron studies, stable. 2. Personal history of colon cancer, status post left hemicolectomy over 10 years ago. 3. Dementia. I was initially consulted due to concern for acute worsening of chronic anemia with no reported GI bleeding in the context of prior partial colon resection for colon cancer. Notably, since that time, hemoglobin has remained stable and there has been no overt bleeding. My recommendations really have not changed. It would be reasonable to pursue diagnostic EGD and colonoscopy, particularly given his personal history of malignancy, but on the other hand with his comorbidities and our inability to get in touch with his medical [id number], I certainly would not proceed with any endoscopic investigation without those discussions. If we continue to be unable to contact the family, then it maybe best just to forego any endoscopy altogether. Dr. Mayorga, who has seen the patient in the past, will be returning tomorrow. We will get his opinion. Job ID: [id number]
[2019-04-14 05:39] LABS: Hemoglobin 8.6 g/dL (14.0-18.0)
[2019-04-14] MEDS: Cyanocobalamin (Vitamin B-12) 1,000 MCG TAB PO SCH (08:55)
[2019-04-14] MEDS: Folic Acid 1 MG TAB PO SCH (08:55)
[2019-04-14] MEDS: Ascorbic Acid 500 mg Chewable Tablet PO SCH (08:55)
[2019-04-14] MEDS: Ferrous Sulfate 325 MG TAB PO SCH ×2 (08:55→17:02)
[2019-04-14] MEDS: Colchicine 0.6 MG TAB PO SCH (08:56)
[2019-04-14] MEDS: Acetaminophen 325 MG TAB PO PRN (13:00)
--- NOTE | 2019-04-14 14:32 | PDOC.HOSPP ---
- Subjective Encounter Date: 04/14/19 Encounter Time: 14:30 Subjective: minimal residual pain in R knee - Objective Vital Signs & Weight: Vital Signs (12 hours) Temp Pulse Resp BP Pulse Ox 04/14/19 08:00 98.3 F 95 18 128/64 99 Weight Weight 141 lb 1.533 oz I&O: 04/13/19 04/14/19 04/15/19 06:59 06:59 06:59 Intake Total 1600 1600 Output Total 300 475 Balance 1300 1125 Result Diagrams: 04/14/19 05:19 04/13/19 07:25 Hospitalist ROS - Medication Medications: Active Medications Generic Name Dose Route Start Last Admin Trade Name Freq PRN Reason Stop Dose Admin Acetaminophen 650 mg 04/09/19 21:27 04/14/19 13:00 Tylenol PO 650 mg Q6H PRN Administration Mild Pain (1-3) Ascorbic Acid 500 mg 04/12/19 09:00 04/14/19 08:55 Vitamin C PO 500 mg DAILY AYSHA Administration Colchicine 0.6 mg 04/14/19 09:00 04/14/19 08:56 Colchicine PO 0.6 mg DAILY AYSHA Administration Cyanocobalamin 1,000 mcg 04/12/19 09:00 04/14/19 08:55 Vitamin B-12 PO 1,000 mcg DAILY AYSHA Administration Ferrous Sulfate 325 mg 04/11/19 17:00 04/14/19 08:55 Feosol PO 325 mg BID-WM AYSHA Administration Folic Acid 1 mg 04/12/19 09:00 04/14/19 08:55 Folvite PO 1 mg DAILY AYSHA Administration Sodium Chloride 10 ml 04/10/19 09:00 04/14/19 08:56 Flush - Normal Saline IVF 10 ml Q12HR AYSHA Administration - Exam General Appearance: NAD Neck: no JVD Heart: RRR, no murmur Respiratory: CTAB Gastrointestinal: soft, normal bowel sounds Extremities: no edema Extremities - other findings: no R knee effusion Hosp A/P (1) Effusion, right knee Code(s): M25.461 - EFFUSION, RIGHT KNEE Status: Acute (2) Trichomoniasis of bladder Code(s): A59.03 - TRICHOMONAL CYSTITIS AND URETHRITIS Status: Acute (3) Chronic anemia Code(s): D64.9 - ANEMIA, UNSPECIFIED Status: Chronic (4) HTN (hypertension) Code(s): I10 - ESSENTIAL (PRIMARY) HYPERTENSION Status: Chronic Qualifiers: Hypertension type: essential hypertension Qualified Code(s): I10 - Essential (primary) hypertension - Plan effusion resolved awaiting decision on endoscopy( anemia, HO colon CA) cont current meds, placement?
[2019-04-15 08:23] VITALS: TEMP 98.2
[2019-04-15] MEDS: Ferrous Sulfate 325 MG TAB PO SCH (08:32)
[2019-04-15] MEDS: Cyanocobalamin (Vitamin B-12) 1,000 MCG TAB PO SCH (08:32)
[2019-04-15] MEDS: Folic Acid 1 MG TAB PO SCH (08:32)
[2019-04-15] MEDS: Ascorbic Acid 500 mg Chewable Tablet PO SCH (08:32)
[2019-04-15] MEDS: Colchicine 0.6 MG TAB PO SCH (08:32)
[2019-04-15] MEDS: Acetaminophen 325 MG TAB PO PRN (08:32)
--- NOTE | 2019-04-15 09:43 | PRG ---
DATE OF SERVICE: 04/14/2019 SUBJECTIVE: This is an 83-year-old male with previous colon cancer, status post surgery more than 10 years ago. The patient was hospitalized recently because of possible stool occult blood and found to have anemia, was seen by Dr. Francisco Garzon over the weekend. The patient has dementia and no proper history could be obtained. No definite history of any GI bleeding. On admission, he was found to have anemia. The hemoglobin is 8.3, hematocrit 25. Today, it is 8.6, hematocrit 25.9. The patient has no overt GI bleeding. Unfortunately, with dementia, he cannot give any proper history and cannot give consent . The power of collections attorney person could not be reached and no consent could be obtained for endoscopy. PHYSICAL EXAMINATION: VITAL SIGNS: Stable, afebrile, pulse is 95, blood pressure 120/64. CARDIOVASCULAR AND LUNGS: Within normal limits. ABDOMEN: Soft. No organomegaly. No tenderness. No masses. LABORATORY DATA: The stool for occult blood came back negative. IMPRESSION: 1. Anemia with negative fecal occult blood test. 2. Past history of colon cancer. 3. Dementia. 4. Pseudogout. RECOMMENDATION: Unfortunately, yet no permit could be obtained for a colonoscopy from the next of kin who has power of collections attorney. The patient also has anemia of chronic disease and also the guaiac is negative. The dementia, we are not sure how aggressive . If a consent can be obtained from the power of collections attorney, we may consider colonoscopy. In the meantime, continue with supportive care. Job ID: [id number]
--- NOTE | 2019-04-15 10:14 | DIS ---
DATE OF ADMISSION: 04/09/2019 DATE OF DISCHARGE: 04/15/2019 PRIMARY CARE PROVIDER: iJmmy Roland. DISPOSITION: Discharged to [facility]. FINAL DIAGNOSES: 1. Effusion, right knee. 2. Pseudogout. 3. Trichomonal urethritis. 4. Anemia, unspecified. 5. Hypertension. DISCHARGE MEDICATIONS: 1. Amlodipine 10 mg a day. 2. Folic acid 1 mg a day. 3. Ferrous sulfate 325 mg twice a day. 4. B12 of 1000 mcg a day. 5. Colchicine 0.6 mg a day. 6. Vitamin C 500 mg a day. ALLERGIES: PENICILLINS. CODE STATUS: Full. PENDING AT TIME OF DISCHARGE: Nothing. DIET: Heart healthy. CONSULTATIONS: 1. Ezekiel Cobb PA-C, for Orthopedic Surgery. 2. Francisco Garzon, Gastroenterology. HOSPITAL COURSE: The patient admitted to [facility] after transfer from [place] with swelling of his knee. He was started on IV vancomycin, IV Rocephin, started on Flagyl for Trichomonas infection in his urethra, given IV fluids. Orthopedic Surgery recommended no surgery. Laboratory; white count 9.8, hemoglobin 8.3, platelet count 237,000. Comprehensive metabolic profile showed a sodium of 139, potassium 3.5, BUN 18, creatinine 1.07. The patient started on colchicine, effusion resolved. Iron level 40, iron binding capacity 129, percent saturation 31, folate was 7, and ferrous sulfate from medicine list. Dr. Francisco Garzon noted the patient has had colon cancer and surgery in the past. We were unable to locate the family for an informed consent for colonoscopy. His stool was negative for blood. It is suspected that he has had no recent or acute bleed. His hemoglobin stayed relatively stable in the hospital. Blood culture showed a coagulase-negative 1/2 considered contaminant. Urine culture was negative. The patient has severe deconditioning. He is being transferred to the [facility] for continuing care under Dr. Jimmy Roland, who will follow him. Job ID: [id number] [facility]
[2019-04-15 12:48] VITALS: BP 108/63
== END 2019-04-15 13:15 | disposition swing bed (61) | DRG 554 ==
LOC: ERS 16:45 → T4-B 18:01
PROVIDERS: ADMIT Internal Medicine; ATTEND Internal Medicine
DX: M11.261 Other chondrocalcinosis, right knee (principal); N39.0 Urinary tract infection, site not specified; N17.9 Acute kidney failure, unspecified; M25.461 Effusion, right knee; D64.9 Anemia, unspecified; I12.9 Hypertensive chronic kidney disease with stage 1 through stage 4 chronic kidney disease, or unspecified chronic kidney disease; N18.9 Chronic kidney disease, unspecified; E11.22 Type 2 diabetes mellitus with diabetic chronic kidney disease; E87.6 Hypokalemia; Z79.899 Other long term (current) drug therapy; Z85.038 Personal history of other malignant neoplasm of large intestine; Z85.46 Personal history of malignant neoplasm of prostate; Z88.0 Allergy status to penicillin; M17.11 Unilateral primary osteoarthritis, right knee; F03.90 Unspecified dementia, unspecified severity, without behavioral disturbance, psychotic disturbance, mood disturbance, and anxiety
CPT/HCPCS: 36415; 80048; 80202; 82274; 82607; 82728; 82746; 83540; 83550; 83735; 85014; 85018; 85025; 85027; 87040; 87086; 87149; 99284; J0696; J2270; J3370; J3490

== ENCOUNTER 2019-12-14 17:32 | Inpatient (IN) | payer MEDICARE, OTHER ==
[~2019-12-14 17:32] MED LIST: Iopamidol-370 76% 500 ML 1 ML ONE
[2019-12-14] MEDS ORDERED: Morphine 4 MG/ML VIAL ONE (18:03)
[2019-12-14] MEDS ORDERED: Acetaminophen 650 MG Suppository PR PRN (19:46)
[2019-12-14] MEDS ORDERED: Ondansetron ODT 4 MG TAB PO PRN (19:46)
[2019-12-14] MEDS ORDERED: Acetaminophen 325 MG TAB PO PRN (19:46)
[2019-12-14] MEDS ORDERED: Ondansetron PF 4 MG/2 ML Vial IVP PRN (19:46)
--- NOTE | 2019-12-14 19:54 | PDOC.HHP ---
Hospitalist HPI - History of Present Illness abdominal pain History of Present Illness: history is limited, patient is a poor historian secondary to dementia Case of a 84y/o male with pmhx of dementia, htn and prostate ca s/p chemo radio and surgery who comes to hospital due to abdominal pain intermittently for the past couple days. The patient was transferred from [place] for further evaluation. abd xr and abd ct are consistent with sbo. surgery was called and recommended admission and ngt placement. hospitalist was called for further evaluation and management. patient denies fever chills or malaise does refers he has nausea and vomiting, denies hematemesis, last bowel movement was yesterday. patient has multiple abdominal surgeries and previous sob admissions Hospitalist ROS - Review of Systems ROS unobtainable: due to mental status Hospitalist History - Past Surgical History Past Surgical History: reports: Appendectomy Other Surgical History: colectomy and reversal prostatectomy - Family History Other Family History: unable to asses due to dementia - Social History Other Social History: unable to asses due to dementia - Exam General Appearance: NAD, awake alert Eye: PERRL, anicteric sclera ENT: normocephalic atraumatic, no oropharyngeal lesions Neck: supple, symmetric, no JVD Heart: RRR, no murmur, no gallops Respiratory: CTAB, no wheezes, no rales Gastrointestinal: soft, tender to palpation, distended Extremities: no cyanosis, no clubbing, no edema Skin: normal turgor, no lesions, no rashes Neurological: cranial nerve grossly intact, normal sensation to touch Musculoskeletal: normal tone, normal strength, no muscle wasting Psychiatric: normal affect, normal behavior, A&O x 3 Hospitalist Results - Radiology Interpretation CT scan - abdomen Additional Comment: dilated loops consistent with sbo Abdominal x-ray Additional Comment: dilated loops ileus vs sbo Hospitalist H&P A/P - Problem (1) SBO (small bowel obstruction) Code(s): K56.609 - UNSP INTESTNL OBST, UNSP TO PARTIAL VERSUS COMPLETE OBST Status: Acute (2) Hypertension Code(s): I10 - ESSENTIAL (PRIMARY) HYPERTENSION Status: Acute (3) Prostate CA Code(s): C61 - MALIGNANT NEOPLASM OF PROSTATE Status: Acute - Plan Plan: 84y/o male with the stated pmhx who present with abdominal pain and abdominal xr and ct consistent with sbo small bowel obstruction - npo - ngt - pain management - surgery evaluation - ivfs -multiple abdominal surgeries - previous episodes of sbo htn - hydralazine prn - continue home meds when possible
[2019-12-14] MEDS ORDERED: Midazolam HCl 2 mg/2 ml Vial ONE ×2 (20:11→20:43)
[2019-12-14] MEDS ORDERED: hydrALAZINE 20 MG/ML VIAL SLOW IVP PRN (20:27)
[2019-12-14] MEDS ORDERED: Morphine 2 MG/ML SYRINGE SLOW IVP PRN (20:29)
--- NOTE | 2019-12-14 20:29 | CT ---
CT ABDOMEN AND PELVIS: Date: 12/14/2019 COMPARISON: 12/01/2019. HISTORY: Diffuse abdominal pain, evaluate for small bowel obstruction. TECHNIQUE: Axial CT imaging at 5 mm intervals from the lung bases through the pubic symphysis with intravenous c ontrast. Coronal and sagittal reformatted imaging obtained. FINDINGS: Coronary arterial calcifications are present. There are a few scattered calcified pleural plaques. Th ere is no free intraperitoneal air seen. There is a right hip arthroplasty present. The stomach is mi ldly distended and filled with fluid, a new finding. There is distal esophageal wall thickening, nons pecific and stable. Subtle stones are suspected within the gallbladder posteriorly on image 22. The l iver, pancreas, adrenal glands, and kidneys appear unremarkable. Streak artifact from the right hip arthroplasty limits detailed assessment of the pelvis. There is a colonic suture line within the pelvis. There is mild gaseous distention of the transverse colon. There are a few mildly dilated and fluid-filled loops of small bowel within the left upper quadrant, particularly on axial image 31 measuring 4.5 cm in transverse dimension, more conspicuous than on the prior study. Distal decompressed small bowel loops are present. There is scattered atherosclerotic c alcification of the abdominal aorta and its branches. No abdominal or pelvic lymphadenopathy is seen. Review of the osseous structures demonstrates no worrisome lytic or blastic bone lesions. IMPRESSION: 1. The stomach is mildly distended and filled with fluid. In addition, there are mildly dilated flui d-filled loops of small bowel within the left upper quadrant, new when compared to the prior examinat ion. Distal decompressed small bowel loops are noted. These findings are suspicious for partial/devel oping small bowel obstruction. 2. Distal esophageal wall thickening which may signify esophagitis. Short-term follow-up imaging fol lowing treatment is advised to document resolution of the findings concerning for developing small stacey wel obstruction. POS: OFF
[2019-12-14] MEDS: Sodium Chloride 0.9% 1,000 ML IV SCH (22:00)
[2019-12-15 02:49] VITALS: BMI 22.1
[2019-12-15] MEDS: Famotidine/PF 20 mg/2ml Vial SLOW IVP SCH ×2 (03:00→09:37)
[2019-12-15 05:59] LABS: ALT (SGPT) 9 U/L (8-55); AST (SGOT) 16 U/L (5-34); Albumin 3.2 g/dL (3.4-4.8); Alkaline Phosphatase 75 U/L (40-110); Anion Gap 10 mmol/L (10-20); BUN (Urea Nitrogen) 14 mg/dL (8.4-25.7); Bilirubin, Total 0.6 mg/dL (0.2-1.2); Calc. Creatinine Clearance 43 mL/min (70-130); Calcium 8.7 mg/dL (7.8-10.44); Carbon Dioxide 26 mmol/L (23-31); Chloride 104 mmol/L (98-107); Estimated GFR-MDRD 72; Globulin 4.1 g/dL (2.4-3.5); Glucose 96 mg/dL (83-110); Potassium 4.1 mmol/L (3.5-5.1); Protein, Total 7.3 g/dL (5.8-8.1); Sodium 136 mmol/L (136-145)
[2019-12-15 06:33] LABS: Band 8 % (5-11); Eosinophils 1 % (0-10); Hemoglobin 8.6 g/dL (14.0-18.0); Lymphocytes 20 % (21-51); MDiff Complete? YES; Mean Corpuscular HGB CONC 31.5 g/dL (32.0-36.0); Mean Corpuscular Volume 88.7 fL (78.0-98.0); Mean Platelet Volume 7.8 fL (7.4-10.4); Monocytes 8 % (0-10); Neutrophil 63 % (42-75); Platelet Count 386 thou/uL (130-400); RBC Distribution Width 14.5 % (11.5-14.5); Red Blood Cell (RBC) Count 3.09 mill/uL (4.70-6.10); White Blood Cell (WBC) Count 6.9 thou/uL (4.8-10.8)
[2019-12-15] MEDS: Sodium Chloride 0.9% 1,000 ML IV SCH (09:36)
[2019-12-15] MEDS: Enoxaparin Sodium 40 MG/0.4 ML SYRINGE SC SCH (09:38)
[2019-12-15 12:30] LABS: SARS-CoV-2 MS2 Positive; SARS-CoV-2 N Gene Negative; SARS-CoV-2 S Gene Negative; SARS-CoV-2 by NAA Not Detected (NotDetected); SARS-CoV-2 orf1ab Negative
--- NOTE | 2019-12-15 12:51 | PDOC.HOSPP ---
- Subjective Encounter Date: 12/15/19 Encounter Time: 12:50 Subjective: Mr. Madden was seen today in follow-up of SBO. He is a bit confused. He was trying to get out of bed when I came to see him. I helped him back in bed. H denies abdominal pain or nausea. He tells me he is hungry. - Objective Vital Signs & Weight: Vital Signs (12 hours) Temp Pulse Resp BP Pulse Ox 12/15/19 08:15 98.0 F 80 20 124/62 99 12/15/19 02:33 91 18 158/73 H 97 Weight Weight 145 lb 11.2 oz I&O: 12/14/19 12/15/19 12/16/19 06:59 06:59 06:59 Intake Total 300 Output Total 425 Balance -125 Result Diagrams: 12/15/19 05:02 12/15/19 05:02 Hospitalist ROS - Medication Medications: Active Medications Generic Name Dose Route Start Last Admin Trade Name Freq PRN Reason Stop Dose Admin Enoxaparin Sodium 40 mg 12/15/19 09:00 12/15/19 09:38 Lovenox SC 40 mg 0900 AYSHA Administration Sodium Chloride 1,000 mls @ 50 mls/hr 12/14/19 20:30 12/15/19 09:36 Normal Saline 0.9% IV 1,000 mls .Q20H AYSHA Administration - Exam Eye: PERRL, anicteric sclera Heart: RRR, no murmur, no gallops, no rubs, normal peripheral pulses Respiratory: CTAB, no wheezes, no rales, no ronchi, normal chest expansion, no tachypnea Gastrointestinal: soft, non-tender, non-distended, normal bowel sounds Extremities: no cyanosis, no edema Hosp A/P (1) SBO (small bowel obstruction) Code(s): K56.609 - UNSP INTESTNL OBST, UNSP TO PARTIAL VERSUS COMPLETE OBST Status: Acute (2) Hypertension Code(s): I10 - ESSENTIAL (PRIMARY) HYPERTENSION Status: Acute (3) Prostate CA Code(s): C61 - MALIGNANT NEOPLASM OF PROSTATE Status: Acute - Plan * SBO- he has had decreasing NG tube output, before he removed his NG tube last night. No vomiting today * HTN- blood pressure is stable- continue Hydralazine IV prn * Continue DVT and GI Prophylaxis
--- NOTE | 2019-12-15 14:04 | CON ---
DATE OF CONSULTATION: CHIEF COMPLAINT: Small-bowel obstruction. HISTORY OF PRESENT ILLNESS: An 84-year-old male with a history of multiple small-bowel obstructions, now presents with a history of abdominal distention associated with nausea and vomiting. NG tube was placed in the emergency room. He was admitted to the floor. The patient's NG tube came out overnight. He denies nausea this morning. The patient is confused, so most of the history is obtained from the chart. PAST MEDICAL HISTORY: Includes: 1. Hypertension. 2. Dementia. 3. Prostate cancer. PAST SURGICAL HISTORY: 1. Prostatectomy. 2. Appendectomy. 3. Hernia. 4. Colostomy. 5. Colostomy reversal. MEDICATIONS: Medicines taken daily include: 1. Amlodipine. 2. Vitamin B12. ALLERGIES: PENICILLIN. SOCIAL HISTORY: Drinks daily. No smoking or other drugs. REVIEW OF SYSTEMS: Ten-system review of systems is otherwise negative unless described above. PHYSICAL EXAMINATION: VITAL SIGNS: Blood pressure 136/71, pulse 82, and respirations 20. He is afebrile. NG output was 125 overnight before he pulled it out. His urine output was 300 overnight. CHEST: Clear. HEART: Regular rate. ABDOMEN: Soft, nondistended, nontender. Midline incision is well healed without hernia. LABORATORY DATA: White blood cell count is 6.9 and hemoglobin 8.6. Sodium 136, potassium 4.1, and creatinine 1.16. CT scan as above. ASSESSMENT: Small-bowel obstruction, likely secondary to adhesions. PLAN: Conservative measures for now. If not markedly improved in the next 24 to 48 hours, then Gastrografin small-bowel follow-through. Replace NG tube if he vomits. Job ID: [id number]
[2019-12-16 08:27] LABS: Anion Gap 15 mmol/L (10-20); BUN (Urea Nitrogen) 12 mg/dL (8.4-25.7); Calc. Creatinine Clearance 47 mL/min (70-130); Calcium 8.7 mg/dL (7.8-10.44); Carbon Dioxide 19 mmol/L (23-31); Chloride 106 mmol/L (98-107); Estimated GFR-MDRD 81; Glucose 66 mg/dL (83-110); Potassium 3.9 mmol/L (3.5-5.1); Sodium 136 mmol/L (136-145)
[2019-12-16 08:35] LABS: #Lymphocytes 1.7 thou/uL (1.20-3.40); #Monocytes 0.6 thou/uL (0.11-0.59); %Basophils 0.3 % (0.0-1.0); %Eosinophils 0.7 % (0.0-10.0); %Lymphocytes 26.3 % (21.0-51.0); %Monocytes 9.8 % (0.0-10.0); %Neutrophils 62.8 % (42.0-75.0); Hemoglobin 9.6 g/dL (14.0-18.0); Mean Corpuscular HGB CONC 33.5 g/dL (32.0-36.0); Mean Corpuscular Volume 86.8 fL (78.0-98.0); Mean Platelet Volume 8.6 fL (7.4-10.4); Platelet Count 309 thou/uL (130-400); RBC Distribution Width 14.7 % (11.5-14.5); Red Blood Cell (RBC) Count 3.29 mill/uL (4.70-6.10); White Blood Cell (WBC) Count 6.4 thou/uL (4.8-10.8)
[2019-12-16] MEDS: Enoxaparin Sodium 40 MG/0.4 ML SYRINGE SC SCH (09:46)
[2019-12-16] MEDS: Famotidine/PF 20 mg/2ml Vial SLOW IVP SCH (09:46)
--- NOTE | 2019-12-16 11:50 | PDOC.HOSPP ---
- Subjective Encounter Date: 12/16/19 Encounter Time: 11:49 Subjective: Mr. Madden was seen today in follow-up of SBO. He has advanced dementia, but says he does not hurt in his abdomen. No nausea or vomiting has been reported. - Objective Vital Signs & Weight: Vital Signs (12 hours) Temp Pulse Resp BP Pulse Ox 12/16/19 10:50 98.6 F 85 14 152/72 H 100 12/16/19 07:30 98.1 F 90 16 126/72 100 12/16/19 04:55 96 18 142/84 H 100 12/16/19 00:50 95 18 143/77 H 100 Weight Weight 145 lb 11.2 oz I&O: 12/15/19 12/16/19 12/17/19 06:59 06:59 06:59 Intake Total 300 600 Output Total 425 1575 Balance -125 -975 Result Diagrams: 12/16/19 07:50 12/16/19 07:50 Hospitalist ROS - Medication Medications: Active Medications Generic Name Dose Route Start Last Admin Trade Name Freq PRN Reason Stop Dose Admin Enoxaparin Sodium 40 mg 12/15/19 09:00 12/16/19 09:46 Lovenox SC 40 mg 0900 AYSHA Administration Famotidine 20 mg 12/16/19 09:00 12/16/19 09:46 Pepcid SLOW IVP 20 mg DAILY AYSHA Administration Sodium Chloride 1,000 mls @ 50 mls/hr 12/14/19 20:30 12/15/19 09:36 Normal Saline 0.9% IV 1,000 mls .Q20H AYSHA Administration - Exam Eye: PERRL, anicteric sclera Heart: RRR, no murmur, no gallops, no rubs, normal peripheral pulses Respiratory: CTAB, no wheezes, no rales, no ronchi, normal chest expansion, no tachypnea Gastrointestinal: soft, non-tender, non-distended Extremities: no cyanosis, no edema Hosp A/P (1) SBO (small bowel obstruction) Code(s): K56.609 - UNSP INTESTNL OBST, UNSP TO PARTIAL VERSUS COMPLETE OBST Status: Acute (2) Hypertension Code(s): I10 - ESSENTIAL (PRIMARY) HYPERTENSION Status: Acute (3) Prostate CA Code(s): C61 - MALIGNANT NEOPLASM OF PROSTATE Status: Acute - Plan * SBO- will defer to Surgery, but he appears to be improving * HTN- blood pressure is stable- continue Hydralazine IV prn * Continue DVT and GI Prophylaxis
--- NOTE | 2019-12-16 12:18 | PRG ---
DATE OF SERVICE: 12/16/2019 SUBJECTIVE: Mr. Madden has no complaints today. Denies nausea. Has not vomited since he pulled his NG out yesterday. He is hungry. OBJECTIVE: VITAL SIGNS: He is afebrile. Vital signs are stable. ABDOMEN: Soft. He has active bowel sounds. Nondistended. ASSESSMENT: Partial small-bowel obstruction, likely resolving. PLAN: I think we can start him back on at least a liquid diet and see how he does, unlikely he needs surgery. Job ID: [id number]
[2019-12-16] MEDS: Sodium Chloride 0.9% 1,000 ML IV SCH ×2 (18:50→20:32)
[2019-12-17] MEDS: Famotidine/PF 20 mg/2ml Vial SLOW IVP SCH (07:55)
[2019-12-17] MEDS: Enoxaparin Sodium 40 MG/0.4 ML SYRINGE SC SCH (07:55)
--- NOTE | 2019-12-17 09:44 | PDOC.HOSPP ---
- Subjective Encounter Date: 12/17/19 Encounter Time: 09:42 Subjective: Mr. Madden was seen today in follow-up of SBO. He does not have any complaints. He appears comfortable. No nausea or vomiting noted. - Objective Vital Signs & Weight: Vital Signs (12 hours) Temp Pulse Resp BP Pulse Ox 12/17/19 07:13 98.9 F 87 16 108/54 L 100 12/17/19 04:00 97.8 F 78 16 158/72 H 100 12/17/19 00:06 98.1 F 88 18 164/85 H 97 Weight Weight 145 lb 11.2 oz I&O: 12/16/19 12/17/19 12/18/19 06:59 06:59 06:59 Intake Total 600 840 Output Total 1575 800 Balance -975 40 Result Diagrams: 12/16/19 07:50 12/16/19 07:50 Hospitalist ROS - Medication Medications: Active Medications Generic Name Dose Route Start Last Admin Trade Name Freq PRN Reason Stop Dose Admin Enoxaparin Sodium 40 mg 12/15/19 09:00 12/17/19 07:55 Lovenox SC 40 mg 0900 AYSHA Administration Famotidine 20 mg 12/16/19 09:00 12/17/19 07:55 Pepcid SLOW IVP 20 mg DAILY AYSHA Administration Sodium Chloride 1,000 mls @ 50 mls/hr 12/14/19 20:30 12/16/19 20:32 Normal Saline 0.9% IV 1,000 mls .Q20H AYSHA Administration - Exam Eye: PERRL, anicteric sclera Heart: RRR, no murmur, no gallops, no rubs Respiratory: CTAB, no wheezes, no rales, no ronchi, normal chest expansion, no tachypnea Gastrointestinal: soft, non-tender, non-distended, normal bowel sounds, no palpable masses Extremities: no cyanosis, no edema Hosp A/P (1) SBO (small bowel obstruction) Code(s): K56.609 - UNSP INTESTNL OBST, UNSP TO PARTIAL VERSUS COMPLETE OBST Status: Acute (2) Hypertension Code(s): I10 - ESSENTIAL (PRIMARY) HYPERTENSION Status: Acute (3) Prostate CA Code(s): C61 - MALIGNANT NEOPLASM OF PROSTATE Status: Acute - Plan * SBO- unfortunately he has advanced dementia, and he is not able to fully communicate his needs. He appears comfortable. has good bowel sounds- his tray is in front of him- hopefully he will give it a try * HTN- continue Hydralazine IV prn * Continue DVT and GI Prophylaxis
--- NOTE | 2019-12-17 13:58 | PDOC.GSPN ---
Surgery Progress Note: Subj - Subjective Narrative: Tolerated clears. No nausea Surgery Progress Note: Obj - Vital signs Vital signs: Vital Signs - Most Recent Temp Pulse Resp BP Pulse Ox 98.3 F 76 16 154/77 H 100 12/17/19 11:16 12/17/19 11:16 12/17/19 11:16 12/17/19 11:16 12/17/19 11:16 - Physical Exam General: no distress Abdomen: soft, non tender, nondistended Surgery Progress Note: Results - Labs Result Diagrams: 12/16/19 07:50 12/16/19 07:50 Surgery Progress Note: A/P - Problem (1) SBO (small bowel obstruction) Current Visit: Yes Code(s): K56.609 - UNSP INTESTNL OBST, UNSP TO PARTIAL VERSUS COMPLETE OBST Status: Acute - Plan Plan: Resolving -full liquids -He's not going to need surgery. -DC if tolerates.
[2019-12-18] MEDS: Sodium Chloride 0.9% 1,000 ML IV SCH (06:42)
[2019-12-18] MEDS: Enoxaparin Sodium 40 MG/0.4 ML SYRINGE SC SCH (10:05)
[2019-12-18] MEDS: Famotidine/PF 20 mg/2ml Vial SLOW IVP SCH (10:06)
--- NOTE | 2019-12-18 11:33 | PDOC.HOSPP ---
- Subjective Encounter Date: 12/18/19 Encounter Time: 11:31 Subjective: Mr. Madden was seen today in follow-up of SBO. He does not have any complaints. He tolerated clear liquid diet. - Objective Vital Signs & Weight: Vital Signs (12 hours) Temp Pulse Resp BP Pulse Ox 12/18/19 07:55 97.5 F L 82 14 150/71 H 100 12/18/19 03:24 98.1 F 82 18 160/79 H 100 12/17/19 23:35 98.0 F 72 18 156/73 H 100 Weight Weight 145 lb 11.2 oz I&O: 12/17/19 12/18/19 12/19/19 06:59 06:59 06:59 Intake Total 840 483 Output Total 800 980 Balance 40 -497 Result Diagrams: 12/16/19 07:50 12/16/19 07:50 Hospitalist ROS - Medication Medications: Active Medications Generic Name Dose Route Start Last Admin Trade Name Freq PRN Reason Stop Dose Admin Enoxaparin Sodium 40 mg 12/15/19 09:00 12/18/19 10:05 Lovenox SC 40 mg 0900 AYSHA Administration Famotidine 20 mg 12/16/19 09:00 12/18/19 10:06 Pepcid SLOW IVP 20 mg DAILY AYSHA Administration Sodium Chloride 1,000 mls @ 50 mls/hr 12/14/19 20:30 12/18/19 06:42 Normal Saline 0.9% IV Not Given .Q20H AYSHA - Exam Eye: PERRL, anicteric sclera Heart: RRR, no murmur, no gallops, no rubs, normal peripheral pulses Respiratory: CTAB, no wheezes, no rales, no ronchi, normal chest expansion Gastrointestinal: soft, non-tender, non-distended, normal bowel sounds, no palpable masses, no hepatomegaly Extremities: no cyanosis, no edema Hosp A/P (1) SBO (small bowel obstruction) Code(s): K56.609 - UNSP INTESTNL OBST, UNSP TO PARTIAL VERSUS COMPLETE OBST Status: Acute (2) Hypertension Code(s): I10 - ESSENTIAL (PRIMARY) HYPERTENSION Status: Acute (3) Prostate CA Code(s): C61 - MALIGNANT NEOPLASM OF PROSTATE Status: Acute - Plan * SBO- resolved * Consider advancing diet, and possible home if he tolerates * HTN- will re-start Amlodipine * Continue DVT and GI Prophylaxis
[2019-12-18] MEDS ORDERED: Amlodipine 10 MG TAB PO SCH (11:45)
--- NOTE | 2019-12-18 15:01 | PDOC.GSPN ---
Surgery Progress Note: Subj - Subjective Patient reports: tolerating liquids well Surgery Progress Note: Obj - Vital signs Vital signs: Vital Signs - Most Recent Temp Pulse Resp BP Pulse Ox 97.9 F 71 14 150/73 H 100 12/18/19 11:32 12/18/19 11:32 12/18/19 11:32 12/18/19 11:32 12/18/19 11:32 - Physical Exam General: no distress Abdomen: soft, non tender, nondistended Surgery Progress Note: Results - Labs Result Diagrams: 12/16/19 07:50 12/16/19 07:50 Surgery Progress Note: A/P - Problem (1) SBO (small bowel obstruction) Current Visit: Yes Code(s): K56.609 - UNSP INTESTNL OBST, UNSP TO PARTIAL VERSUS COMPLETE OBST Status: Acute - Plan Plan: Resolved -advance diet -ok to dc if tolerates
[2019-12-19] MEDS: Sodium Chloride 0.9% 1,000 ML IV SCH (01:41)
[2019-12-19] MEDS: Famotidine/PF 20 mg/2ml Vial SLOW IVP SCH (07:58)
[2019-12-19] MEDS: Enoxaparin Sodium 40 MG/0.4 ML SYRINGE SC SCH (07:58)
[2019-12-19] MEDS ORDERED: Amlodipine 10 MG TAB PO SCH (09:00)
--- NOTE | 2019-12-19 12:17 | PDOC.HOSPP ---
- Subjective Encounter Date: 12/19/19 Encounter Time: 12:10 Subjective: Mr. Madden was seen today in follow-up of SBO. He does not have any complaints. He has been tolerating a full liquid diet. I spoke with his niece. She is concerned that he can't swallow. - Objective Vital Signs & Weight: Vital Signs (12 hours) Temp Pulse Resp BP Pulse Ox 12/19/19 07:59 77 12/19/19 07:40 98.3 F 76 18 129/64 99 12/19/19 03:58 97.8 F 77 16 131/61 100 Weight Weight 145 lb 11.2 oz I&O: 12/18/19 12/19/19 12/20/19 06:59 06:59 06:59 Intake Total 483 Output Total 980 950 Balance -497 -950 Result Diagrams: 12/16/19 07:50 12/16/19 07:50 Hospitalist ROS - Medication Medications: Active Medications Generic Name Dose Route Start Last Admin Trade Name Freq PRN Reason Stop Dose Admin Amlodipine Besylate 10 mg 12/19/19 09:00 12/19/19 07:59 Norvasc PO 10 mg DAILY AYSHA Administration Enoxaparin Sodium 40 mg 12/15/19 09:00 12/19/19 07:58 Lovenox SC 40 mg 0900 AYSHA Administration Famotidine 20 mg 12/16/19 09:00 12/19/19 07:58 Pepcid SLOW IVP 20 mg DAILY AYSHA Administration Sodium Chloride 1,000 mls @ 50 mls/hr 12/14/19 20:30 12/19/19 01:41 Normal Saline 0.9% IV Not Given .Q20H AYSHA - Exam Eye: PERRL Heart: RRR, no murmur, no gallops, no rubs, normal peripheral pulses Respiratory: CTAB, no wheezes, no rales, no ronchi, normal chest expansion, no tachypnea Gastrointestinal: soft, non-tender, non-distended, normal bowel sounds, no palpable masses Extremities: no cyanosis, no edema Hosp A/P (1) SBO (small bowel obstruction) Code(s): K56.609 - UNSP INTESTNL OBST, UNSP TO PARTIAL VERSUS COMPLETE OBST Status: Acute (2) Hypertension Code(s): I10 - ESSENTIAL (PRIMARY) HYPERTENSION Status: Acute (3) Prostate CA Code(s): C61 - MALIGNANT NEOPLASM OF PROSTATE Status: Acute - Plan * SBO- resolved * Dysphagia- I spoke with his nurse, and he did not seem to have any problem with toerating his breakfast- His niece is concerned about his swallowing- will have Speech Therapy to re-assess * HTN- Blood pressure is better * Continue DVT and GI Prophylaxis
[2019-12-19 12:37] VITALS: TEMP 98.2
[2019-12-19 17:01] VITALS: BP 120/60
--- NOTE | 2019-12-19 18:31 | DIS ---
DATE OF ADMISSION: 12/14/2019 DATE OF DISCHARGE: 12/19/2019 DISCHARGE DISPOSITION: Home. DISCHARGE DIAGNOSES: 1. Small bowel obstruction. 2. Hypertension. 3. Dementia. 4. Dysphagia. DISCHARGE MEDICATIONS: Include; 1. Omeprazole 20 mg p.o. daily. 2. Folic acid 1 mg daily. 3. Iron sulfate 325 mg p.o. b.i.d. 4. Vitamin B12 of 1000 mcg p.o. daily. 5. Amlodipine 10 mg daily. IMAGING DONE DURING HOSPITAL STAY: The patient had a CT scan of the abdomen and pelvis, which showed some mild distention of the stomach. There was some dilated fluid filled loops of small bowel within the left upper quadrant and there was some distal wall thickening of the esophagus, which may represent esophagitis. CODE STATUS: Full code. ALLERGIES: TO PENICILLIN. HOSPITAL COURSE: Mr. Madden is an 84-year-old gentleman, who was brought to the hospital by family after he was noted to have abdominal pain and vomiting. He has had multiple abdominal surgeries and has had small bowel obstructions in the past. He was evaluated in the ER and found to have a small-bowel obstruction once again. He was admitted to the hospital. General Surgery was consulted. He was placed on bowel rest and had an NG tube placed. Unfortunately, the patient has advanced dementia and had pulled his NG tube out. However, by the following day, his symptoms had essentially resolved. His diet was advanced to clear liquids. He tolerated this then on to full liquids without any difficulty. There was some concern for his swallowing ability for this reason, a Speech Therapy consult was obtained and it was found that he did have risk for aspiration, but was able to tolerate ground food with nectar thick liquids and no straws. These recommendations were communicated to the patient's niece, who is his website designer. I also spoke with her myself on the phone and discussed that if he were to have further difficulty with swallowing, then he may not need to be evaluated by GI, as she said that she would be interested in a feeding tube for him. Also with the evidence of the gastritis, we are placing him empirically on omeprazole for now to see if this would help in his symptoms. Job ID: [id number]
--- NOTE | 2019-12-22 06:19 | PQF ---
CLINICAL DOCUMENTATION CLARIFICATION FORM: Dear : Adam Hinson Date / Time:12/22/2019 06:18 Please exercise your independent, professional judgment in responding to the clarification form. Clinical indicators are provided on the bottom of this form for your review Please check appropriate box(es): [ ] Encephalopathy: Etiology: [ ] Hypertensive [ ] Metabolic [ ] Toxic [ ] In the setting of underlying dementia [ ] Unspecified [ ] Other (please specify) [ ] Transient Alteration of Awareness [ X ] Other diagnosis __Dementia [ ] Unable to determine Physician Signature: Date/Time: For continuity of documentation, please document condition throughout progress notes and discharge summary. Thank You. To be completed by CDI/Coding staff for physician review: Present Clinical Indicators - Signs / Symptoms / Labs Results and Location in Medical Record [x] He is a bit confused PN 12/14 [x] poor historian secondary to dementia HP 12/13 [x] he was noted to have abdominal pain and vomiting DS 12/18 [x] BP: 12/1358=130/75 12/1450=875/88 12/1538=118/88 12/1858=821/67 Vital Signs 12/13 Present Risk Factors Results and Location in Medical Record [x] Dementia HP 12/13 [x] 84 years old male HP 12/13 [x] Prostate cancer HP 12/13 [x] HTN HP 12/13 [x] s/p chemotherapy HP 12/13 Present[x] Treatments Results and Location in Medical Record [x] IVF HP 12/13 [x] Versed 2mg IV MAR 12/13 [x] Amlodipine 10mg Oral JUL 05 [x] Morphine 4mg IV JUL 05 CDS/Dam Operator Signature: Alexander Friedman Phone #: [phone] Date/Time: 12/22/2019 06:18 This is a permanent part of the Medical Record [facility]
--- NOTE | 2020-01-06 16:04 | EKG ---
Test Reason : TACHYCARDIA Blood Pressure : / mmHG Vent. Rate : 091 BPM Atrial Rate : 089 BPM P-R Int : 000 ms QRS Dur : 108 ms QT Int : 382 ms P-R-T Axes : 000 -09 043 degrees QTc Int : 469 ms Accelerated Junctional rhythm vs Sinus rhythm Low voltage QRS Incomplete right bundle branch block Nonspecific ST abnormality Abnormal ECG Motion Artifact Confirmed by MO Dailey, EMA ([id number]), newspaper editor managing LIMA WILKERSON ([id number]) on 01/06/2020 4:03:52 PM Referred By: SAMI Confirmed By:EMA HASSAN M.D.
== END 2019-12-19 17:45 | disposition home or self-care (01) | DRG 390 ==
LOC: ERS 17:32 → SJJU 19:54
PROVIDERS: ADMIT Internal Medicine; ATTEND Internal Medicine
DX: K56.600 Partial intestinal obstruction, unspecified as to cause (principal); F03.90 Unspecified dementia, unspecified severity, without behavioral disturbance, psychotic disturbance, mood disturbance, and anxiety; I10 Essential (primary) hypertension; C61 Malignant neoplasm of prostate; R13.10 Dysphagia, unspecified; Z92.21 Personal history of antineoplastic chemotherapy; Z90.49 Acquired absence of other specified parts of digestive tract; Z88.0 Allergy status to penicillin; Z79.899 Other long term (current) drug therapy; Z93.3 Colostomy status; Z11.59 Encounter for screening for other viral diseases
CPT/HCPCS: 36415; 74177; 80048; 80053; 85007; 85025; 85027; 87635; 93005; 96361; 96374; 96375; J1650; J2250; J2270; Q9967; S0028; U0003

== ENCOUNTER 2022-02-01 22:33 | Inpatient (IN) | payer MEDICARE ==
[2022-02-01 22:40] VITALS: BMI 22.8
[2022-02-01] MEDS ORDERED: Ondansetron PF 4 MG/2 ML Vial IVP PRN (22:45)
[2022-02-01] MEDS ORDERED: Acetaminophen 325 MG TAB PO PRN (22:45)
[2022-02-01] MEDS ORDERED: Ondansetron ODT 4 MG TAB SL PRN (22:45)
[2022-02-01] MEDS ORDERED: Sodium Chloride 0.9% 1,000 ML IV SCH (22:45)
[2022-02-01] MEDS ORDERED: HYDROcodone/Acetaminophen 5/325 mg Tablet PO PRN (23:28)
[2022-02-02 00:18] LABS: Iron 49 ug/dL (65-175); Iron Binding Capacity, Total 136 mcg/dL (261-462)
[2022-02-02 03:53] LABS: Creatinine, Urine 72.04 mg/dL (63-166)
[2022-02-02 06:25] LABS: #Monocytes 0.3 thou/uL (0.11-0.59); #Neutrophils 2.6 thou/uL (1.40-6.50); %Basophils 0.4 % (0.0-1.0); %Eosinophils 0.6 % (0.0-10.0); %Lymphocytes 25.7 % (21.0-51.0); %Monocytes 7.6 % (0.0-10.0); %Neutrophils 65.7 % (42.0-75.0); Hemoglobin 6.8 g/dL (14.0-18.0); Mean Corpuscular HGB CONC 32.1 g/dL (32.0-36.0); Mean Corpuscular Hemoglobin 28.8 pg (27.0-31.0); Mean Corpuscular Volume 89.8 fL (78.0-98.0); Mean Platelet Volume 10.3 fL (7.4-10.4); Platelet Count 187 thou/uL (130-400); RBC Distribution Width 15.5 % (11.5-14.5); Red Blood Cell (RBC) Count 2.34 mill/uL (4.70-6.10)
[2022-02-02 06:34] LABS: Anion Gap 9 mmol/L (10-20); BUN (Urea Nitrogen) 33 mg/dL (8.4-25.7); BUN/Creatinine Ratio 13.25; Calc. Creatinine Clearance 17 mL/min (70-130); Calcium 8.3 mg/dL (7.8-10.44); Carbon Dioxide 24 mmol/L (23-31); Chloride 110 mmol/L (98-107); Estimated GFR 24; Glucose 116 mg/dL (83-110); Phosphorus 2.9 mg/dL (2.3-4.7); Potassium 3.6 mmol/L (3.5-5.1); Sodium 139 mmol/L (136-145)
[2022-02-02] MEDS ORDERED: FLU VACC QS2022-23(65YR UP)/PF 240 MCG/0.7 ML SYRINGE IM ONE (09:00)
[2022-02-02] MEDS: Folic Acid 1 MG TAB PO SCH (09:44)
[2022-02-02] MEDS: Ferrous Sulfate 325 MG TAB PO SCH ×2 (09:44→16:20)
[2022-02-02] MEDS: Cyanocobalamin (Vitamin B-12) 1,000 MCG TAB PO SCH (09:44)
[2022-02-02] MEDS: Amlodipine 10 MG TAB PO SCH (09:44)
[2022-02-02] MEDS: Megestrol Acetate 40 MG TAB PO SCH ×3 (09:45→20:27)
[2022-02-02] MEDS: Dextrose 5 % And 0.9 % NaCl 1,000 ML IV SCH ×3 (09:52→20:33)
[2022-02-03] MEDS: Dextrose 5 % And 0.9 % NaCl 1,000 ML IV SCH ×2 (06:02→15:09)
[2022-02-03 07:29] LABS: Hemoglobin 8.5 g/dL (14.0-18.0); Mean Corpuscular HGB CONC 31.6 g/dL (32.0-36.0); Mean Corpuscular Hemoglobin 28.8 pg (27.0-31.0); Mean Corpuscular Volume 91.2 fL (78.0-98.0); Mean Platelet Volume 11.4 fL (7.4-10.4); Platelet Count 189 thou/uL (130-400); RBC Distribution Width 15.5 % (11.5-14.5); Red Blood Cell (RBC) Count 2.94 mill/uL (4.70-6.10); White Blood Cell (WBC) Count 4.3 thou/uL (4.8-10.8)
[2022-02-03 08:18] LABS: Anisocytosis SLIGHT = 6-15 cells (100X) (0-5/hpf); Band 19 % (5-11); Large Platelets SLIGHT; Lymphocytes 23 % (21-51); MDiff Complete? YES; Monocytes 5 % (0-10); Neutrophil 53 % (42-75); Ovalocytes SLIGHT = 2-5 cells (100X) (0-1/hpf); Platelet Morphology Comment Appears Adequate; Polychromasia SLIGHT = 2-3 cells (100X) (0-2/hpf)
[2022-02-03 08:20] LABS: PSA-Asymptomatic (SCREENING) 1.16 ng/mL (0-4.0)
[2022-02-03 08:25] LABS: ALT (SGPT) 14 U/L (8-55); AST (SGOT) 22 U/L (5-34); Alkaline Phosphatase 80 U/L (40-110); Anion Gap 11 mmol/L (10-20); BUN (Urea Nitrogen) 18 mg/dL (8.4-25.7); Bilirubin, Total 0.8 mg/dL (0.2-1.2); Calc. Creatinine Clearance 27 mL/min (70-130); Calcium 8.4 mg/dL (7.8-10.44); Carbon Dioxide 20 mmol/L (23-31); Chloride 109 mmol/L (98-107); Estimated GFR 42; Globulin 4.8 g/dL (2.4-3.5); Glucose 105 mg/dL (83-110); Potassium 3.2 mmol/L (3.5-5.1); Protein, Total 7.8 g/dL (5.8-8.1); Sodium 137 mmol/L (136-145)
[2022-02-03 08:29] LABS: CEA, Serum Less than 0.65 ng/mL (< or = 5.0)
[2022-02-03] MEDS: Ferrous Sulfate 325 MG TAB PO SCH ×2 (08:47→16:23)
[2022-02-03] MEDS: Folic Acid 1 MG TAB PO SCH (08:48)
[2022-02-03] MEDS: Megestrol Acetate 40 MG TAB PO SCH ×3 (08:49→22:36)
[2022-02-03] MEDS: Cyanocobalamin (Vitamin B-12) 1,000 MCG TAB PO SCH (08:50)
[2022-02-03] MEDS: Amlodipine 10 MG TAB PO SCH (08:50)
[2022-02-03] MEDS: Potassium Chloride 20 MEQ TAB PO SCH ×2 (17:45→23:22)
[2022-02-04] MEDS: Dextrose 5 % And 0.9 % NaCl 1,000 ML IV SCH ×3 (01:45→20:52)
[2022-02-04 07:10] LABS: #Lymphocytes 1.4 thou/uL (1.20-3.40); #Monocytes 0.4 thou/uL (0.11-0.59); #Neutrophils 3.3 thou/uL (1.40-6.50); %Basophils 0.9 % (0.0-1.0); %Eosinophils 0.4 % (0.0-10.0); %Lymphocytes 26.7 % (21.0-51.0); %Monocytes 7.3 % (0.0-10.0); %Neutrophils 64.7 % (42.0-75.0); Hemoglobin 8.2 g/dL (14.0-18.0); Mean Corpuscular HGB CONC 32.3 g/dL (32.0-36.0); Mean Corpuscular Hemoglobin 29.2 pg (27.0-31.0); Mean Corpuscular Volume 90.5 fL (78.0-98.0); Platelet Count 171 thou/uL (130-400); RBC Distribution Width 15.4 % (11.5-14.5); Red Blood Cell (RBC) Count 2.79 mill/uL (4.70-6.10); White Blood Cell (WBC) Count 5.1 thou/uL (4.8-10.8)
[2022-02-04 07:35] LABS: ALT (SGPT) 13 U/L (8-55); AST (SGOT) 21 U/L (5-34); Albumin 2.7 g/dL (3.4-4.8); Alkaline Phosphatase 81 U/L (40-110); Anion Gap 8 mmol/L (10-20); BUN (Urea Nitrogen) 12 mg/dL (8.4-25.7); Bilirubin, Total 1.1 mg/dL (0.2-1.2); Calc. Creatinine Clearance 32 mL/min (70-130); Calcium 8.3 mg/dL (7.8-10.44); Carbon Dioxide 22 mmol/L (23-31); Chloride 110 mmol/L (98-107); Estimated GFR 51; Globulin 4.8 g/dL (2.4-3.5); Glucose 106 mg/dL (83-110); Potassium 3.8 mmol/L (3.5-5.1); Protein, Total 7.5 g/dL (5.8-8.1); Sodium 136 mmol/L (136-145)
[2022-02-04] MEDS: Cyanocobalamin (Vitamin B-12) 1,000 MCG TAB PO SCH (09:27)
[2022-02-04] MEDS: Ferrous Sulfate 325 MG TAB PO SCH ×2 (09:27→16:05)
[2022-02-04] MEDS: Megestrol Acetate 40 MG TAB PO SCH ×4 (09:27→20:51)
[2022-02-04] MEDS: Folic Acid 1 MG TAB PO SCH (09:27)
[2022-02-04] MEDS: Amlodipine 10 MG TAB PO SCH (09:27)
[2022-02-05] MEDS: Dextrose 5 % And 0.9 % NaCl 1,000 ML IV SCH ×3 (06:35→16:38)
[2022-02-05] MEDS: Megestrol Acetate 40 MG TAB PO SCH ×3 (08:00→20:50)
[2022-02-05] MEDS: Amlodipine 10 MG TAB PO SCH (08:00)
[2022-02-05] MEDS: Cyanocobalamin (Vitamin B-12) 1,000 MCG TAB PO SCH (08:00)
[2022-02-05] MEDS: Ferrous Sulfate 325 MG TAB PO SCH ×2 (08:00→16:34)
[2022-02-05] MEDS: Folic Acid 1 MG TAB PO SCH (08:00)
[2022-02-06] MEDS: Dextrose 5 % And 0.9 % NaCl 1,000 ML IV SCH ×3 (06:14→23:07)
[2022-02-06] MEDS: Megestrol Acetate 40 MG TAB PO SCH ×3 (08:49→20:09)
[2022-02-06] MEDS: Ferrous Sulfate 325 MG TAB PO SCH ×2 (08:49→17:41)
[2022-02-06] MEDS: Folic Acid 1 MG TAB PO SCH (08:49)
[2022-02-06] MEDS: Amlodipine 10 MG TAB PO SCH (08:50)
[2022-02-06] MEDS: Cyanocobalamin (Vitamin B-12) 1,000 MCG TAB PO SCH (08:50)
[2022-02-07] MEDS: Cyanocobalamin (Vitamin B-12) 1,000 MCG TAB PO SCH (09:13)
[2022-02-07] MEDS: Ferrous Sulfate 325 MG TAB PO SCH ×2 (09:13→17:08)
[2022-02-07] MEDS: Folic Acid 1 MG TAB PO SCH (09:13)
[2022-02-07] MEDS: Megestrol Acetate 40 MG TAB PO SCH ×3 (09:13→20:38)
[2022-02-07] MEDS: Dextrose 5 % And 0.9 % NaCl 1,000 ML IV SCH (09:13)
[2022-02-07] MEDS: Amlodipine 10 MG TAB PO SCH (09:13)
[2022-02-07] MEDS ORDERED: Polyethylene Glycol 3350 17 GM Packet PO SCH (12:45)
[2022-02-07] MEDS: Senokot S 8.6-50 MG TAB PO SCH (20:38)
[2022-02-08] MEDS ORDERED: Polyethylene Glycol 3350 17 GM Packet PO SCH (09:00)
[2022-02-08] MEDS: Senokot S 8.6-50 MG TAB PO SCH (10:24)
[2022-02-08] MEDS: Megestrol Acetate 40 MG TAB PO SCH ×2 (10:25→16:15)
[2022-02-08] MEDS: Cyanocobalamin (Vitamin B-12) 1,000 MCG TAB PO SCH (10:25)
[2022-02-08] MEDS: Amlodipine 10 MG TAB PO SCH (10:25)
[2022-02-08] MEDS: Folic Acid 1 MG TAB PO SCH (10:25)
[2022-02-08] MEDS: Ferrous Sulfate 325 MG TAB PO SCH ×2 (10:26→16:15)
[2022-02-08 18:17] VITALS: BP 145/66; TEMP 98.1
[2022-02-09] MEDS ORDERED: Pantoprazole 40 MG GRANULES PACKET PO SCH (09:00)
== END 2022-02-08 18:26 | DRG 683 ==
LOC: T4-A 22:33
PROVIDERS: ADMIT Internal Medicine; ATTEND Internal Medicine
PROC: 30233N1 Transfusion of Nonautologous Red Blood Cells into Peripheral Vein, Percutaneous Approach (ICD-10-PCS; principal; 2022-02-02)
DX: N17.9 Acute kidney failure, unspecified (principal); E87.20 Acidosis, unspecified; N18.4 Chronic kidney disease, stage 4 (severe); F03.90 Unspecified dementia, unspecified severity, without behavioral disturbance, psychotic disturbance, mood disturbance, and anxiety; D63.8 Anemia in other chronic diseases classified elsewhere; R31.9 Hematuria, unspecified; D63.1 Anemia in chronic kidney disease; E86.0 Dehydration; E87.6 Hypokalemia; I12.9 Hypertensive chronic kidney disease with stage 1 through stage 4 chronic kidney disease, or unspecified chronic kidney disease; Z20.822 Contact with and (suspected) exposure to COVID-19; R63.0 Anorexia; R62.7 Adult failure to thrive; Z68.22 Body mass index [BMI] 22.0-22.9, adult; Z88.0 Allergy status to penicillin; Z79.899 Other long term (current) drug therapy; Z90.49 Acquired absence of other specified parts of digestive tract
CPT/HCPCS: 36415; 36416; 36430; 71046; 80053; 80069; 82378; 82570; 82728; 83540; 83550; 83880; 84300; 84443; 85025; 86850; 86900; 86901; G0103; J7042; J7050; P9016; S0179; U0003; U0005

== ENCOUNTER 2023-09-03 22:29 | Inpatient (IN) | payer MEDICARE ==
[2023-09-03 22:46] VITALS: BMI 23.7
[2023-09-03] MEDS ORDERED: Ondansetron PF 4 MG/2 ML Vial IVP PRN (23:06)
[2023-09-03] MEDS ORDERED: Acetaminophen 325 MG TAB PO PRN (23:06)
[2023-09-03] MEDS ORDERED: Ondansetron ODT 4 MG TAB PO PRN (23:06)
[2023-09-04 00:59] LABS: Hematocrit 20.5 % (42.0-52.0); Hemoglobin 6.4 g/dL (14.0-18.0); Mean Corpuscular HGB CONC 31.2 g/dL (32.0-36.0); Mean Corpuscular Hemoglobin 27.9 pg (27.0-31.0); Mean Corpuscular Volume 89.5 fL (78.0-98.0); Mean Platelet Volume 12.7 fL (7.4-10.4); Platelet Count 303 10x3/uL (130-400); RBC Distribution Width 18.6 % (11.5-14.5); Red Blood Cell (RBC) Count 2.29 mill/uL (4.70-6.10)
[2023-09-04 01:10] LABS: INR-International Normal Ratio 1.1; PTT 40.7 sec (22.9-36.1)
[2023-09-04 01:12] LABS: Iron 50 ug/dL (65-175); Iron Binding Capacity, Total 166 mcg/dL (261-462)
[2023-09-04 07:28] LABS: Ferritin 1224.9 ng/mL (22-322)
[2023-09-04 09:19] LABS: Anisocytosis SLIGHT = 6-15 cells HPF (0-5); Elliptocytes SLIGHT = 2-5 cells HPF (0-1); Hypochromia SLIGHT = 6-15 cells HPF (0-5); Large Platelets 34.3 % (0-5); Lymphocytes 28 % (21-51); Monocytes 5 % (0-10); Neutrophil 66 % (42-75); Platelet Adequacy Comment Platelets Normal; Polychromasia SLIGHT = 2-3 cells HPF (0-2); Schistocytes SLIGHT = 2-5 cells HPF (0-1); Smudge Cells 8.1 %
[2023-09-04 10:37] LABS: Hematocrit 28.1 % (42.0-52.0); Hemoglobin 8.8 g/dL (14.0-18.0); Platelet Count 204 10x3/uL (130-400)
[2023-09-04] MEDS: Pantoprazole 40 MG VIAL IVP SCH (12:34)
[2023-09-04] MEDS ORDERED: hydrALAZINE 20 MG/ML VIAL SLOW IVP PRN (16:33)
[2023-09-04] MEDS: GoLYTELY 4,000 ml Bottle PO SCH (17:40)
[2023-09-05 07:14] LABS: #Basophils 0.04 10x3/uL (0.0-0.2); #Eosinphils Less than 0.03 10x3/uL (0.0-0.7); %Basophils 0.8 % (0.0-1.0); %Eosinophils 0.4 % (0.0-10.0); %Lymphocytes 31.5 % (21.0-51.0); %Monocytes 11.5 % (0.0-10.0); %Neutrophils 54.6 % (42.0-75.0); Hemoglobin 7.6 g/dL (14.0-18.0); Mean Corpuscular Hemoglobin 28.6 pg (27.0-31.0); Mean Corpuscular Volume 86.5 fL (78.0-98.0); Platelet Count 261 10x3/uL (130-400); RBC Distribution Width 17.2 % (11.5-14.5); Red Blood Cell (RBC) Count 2.66 mill/uL (4.70-6.10)
[2023-09-05 07:43] LABS: Anion Gap 12 mmol/L (10-20); BUN (Urea Nitrogen) 23 mg/dL (8.4-25.7); Calc. Creatinine Clearance 34 mL/min (70-130); Calcium 8.6 mg/dL (7.8-10.44); Carbon Dioxide 23 mmol/L (23-31); Chloride 105 mmol/L (98-107); Estimated GFR 53; Glucose 80 mg/dL (83-110); Potassium 4.6 mmol/L (3.5-5.1); Sodium 135 mmol/L (136-145)
[2023-09-05] MEDS ORDERED: Lidocaine 1% PF 5 ML VIAL ONE (09:17)
[2023-09-05] MEDS ORDERED: PROPOFOL 40 ML ONE (09:17)
[2023-09-05] MEDS: GoLYTELY 4,000 ml Bottle PO SCH (20:25)
[2023-09-06 06:55] LABS: #Basophils 0.03 10x3/uL (0.0-0.2); %Basophils 0.6 % (0.0-1.0); %Eosinophils 0.6 % (0.0-10.0); %Lymphocytes 36.2 % (21.0-51.0); %Monocytes 9.9 % (0.0-10.0); %Neutrophils 51.7 % (42.0-75.0); Hematocrit 26.9 % (42.0-52.0); Hemoglobin 8.5 g/dL (14.0-18.0); Mean Corpuscular HGB CONC 31.6 g/dL (32.0-36.0); Mean Corpuscular Hemoglobin 28.3 pg (27.0-31.0); Mean Corpuscular Volume 89.7 fL (78.0-98.0); Mean Platelet Volume 11.1 fL (7.4-10.4); Platelet Count 281 10x3/uL (130-400); RBC Distribution Width 17.4 % (11.5-14.5)
[2023-09-06 07:33] LABS: Anion Gap 14 mmol/L (10-20); BUN (Urea Nitrogen) 18 mg/dL (8.4-25.7); Calc. Creatinine Clearance 33 mL/min (70-130); Calcium 8.9 mg/dL (7.8-10.44); Carbon Dioxide 22 mmol/L (23-31); Chloride 106 mmol/L (98-107); Estimated GFR 52; Glucose 82 mg/dL (83-110); Potassium 4.3 mmol/L (3.5-5.1); Sodium 138 mmol/L (136-145)
[2023-09-06] MEDS ORDERED: PROPOFOL 40 ML ONE (10:00)
[2023-09-06] MEDS ORDERED: PHENYLEPHRINE-NS 100 MCG/ML 10 ML SYRINGE ONE (10:09)
[2023-09-06 17:04] VITALS: BP 169/61
[2023-09-06] MEDS: Amlodipine 10 MG TAB PO SCH (17:04)
[2023-09-06 18:07] VITALS: TEMP 98.3
[2023-09-06] MEDS ORDERED: Megestrol Acetate 40 MG TAB PO SCH (21:00)
[2023-09-07] MEDS ORDERED: Cyanocobalamin (Vitamin B-12) 1,000 MCG TAB PO SCH (09:00)
[2023-09-07] MEDS ORDERED: Amlodipine 10 MG TAB PO SCH (09:00)
[2023-09-07] MEDS ORDERED: Folic Acid 1 MG TAB PO SCH (09:00)
== END 2023-09-06 18:55 | disposition home or self-care (01) | DRG 812 ==
LOC: T4-A 22:29 → OBSVTOIN 09-04 15:22
PROVIDERS: ADMIT Emergency Medicine; ATTEND Internal Medicine
PROC: 30243N1 Transfusion of Nonautologous Red Blood Cells into Central Vein, Percutaneous Approach (ICD-10-PCS; 2023-09-04)
PROC: 0DB98ZX Excision of Duodenum, Via Natural or Artificial Opening Endoscopic, Diagnostic (ICD-10-PCS; principal; 2023-09-05)
PROC: 0DBK8ZZ Excision of Ascending Colon, Via Natural or Artificial Opening Endoscopic (ICD-10-PCS; 2023-09-06)
PROC: 0DBP8ZZ Excision of Rectum, Via Natural or Artificial Opening Endoscopic (ICD-10-PCS; 2023-09-06)
DX: D50.9 Iron deficiency anemia, unspecified (principal); K22.70 Barrett's esophagus without dysplasia; I10 Essential (primary) hypertension; F03.90 Unspecified dementia, unspecified severity, without behavioral disturbance, psychotic disturbance, mood disturbance, and anxiety; K64.8 Other hemorrhoids; Z66 Do not resuscitate; Z85.46 Personal history of malignant neoplasm of prostate; Z85.038 Personal history of other malignant neoplasm of large intestine; Z79.899 Other long term (current) drug therapy; Z88.0 Allergy status to penicillin; Z93.3 Colostomy status
CPT/HCPCS: 36415; 36430; 80048; 82274; 82607; 82728; 83540; 83550; 85025; 86850; 86900; 86901; 88305; C9113; J2704; P9016